=== PATIENT | female | born 1980 | race Caucasian/White ===

== ENCOUNTER 2023-04-03 08:16 | Outpatient (OUT) | payer OTHER, MEDICAID, SELFPAY ==
[2023-04-03 08:35] LABS: Basophils Absolute Auto 0.1 10^3/uL (0.0-0.1); Basophils Percent Auto 1.2 % (0.2-2.0); Eosinophils Absolute Auto 0.2 10^3/uL (0.0-0.7); Hematocrit 38.1 % (36.0-48.0); Hemoglobin 12.7 g/dL (12.0-16.0); Immature Granulocytes Abs Auto 0.01 10^3/uL (0.00-0.03); Immature Granulocytes Pct Auto 0.2 % (0.0-0.5); Lymphocytes Absolute Auto 1.4 10^3/uL (1.2-3.8); Lymphocytes Percent Auto 32.6 % (20.5-60.0); Mean Corpuscular HGB Conc 33.3 g/dL (29.9-35.2); Mean Corpuscular Hemoglobin 31.7 pg (26.7-34.0); Mean Platelet Volume 10.6 fL (9.5-13.5); Monocytes Absolute Auto 0.4 10^3/uL (0.3-0.8); Monocytes Percent Auto 8.7 % (1.7-12.0); Neutrophils Absolute Auto 2.3 10^3/uL (1.4-6.5); Neutrophils Percent Auto 53.3 % (43.0-75.0); Platelet Count 190 10^3/uL (150-450); Red Blood Count 4.01 10^6/uL (4.20-5.40); Red Cell Distribution Width 12.7 % (11.0-15.0); White Blood Count 4.2 10^3/uL (4.0-11.0)
[2023-04-03 08:39] LABS: Bilirubin Urine NEGATIVE (NEGATIVE); Blood Urine NEGATIVE (NEGATIVE); Clarity Urine CLEAR (CLEAR); Color Urine YELLOW (YELLOW); Glucose Urine UA NEGATIVE (NEGATIVE); Ketones Urine NEGATIVE (NEGATIVE); Leukocyte Esterase Urine NEGATIVE (NEGATIVE); Nitrite Urine NEGATIVE (NEGATIVE); Protein Urine NEGATIVE (NEG/TRACE); Urobilinogen Urine 0.2 EU/dL (0.2-1.0)
[2023-04-03 09:20] LABS: WBC Urine NONE SEEN #/HPF (NONE SEEN)
[2023-04-03 09:21] LABS: Bacteria Urine NONE SEEN #/HPF (NONE SEEN); Mucus Urine MODERATE (NONE SEEN); RBC Urine NONE SEEN #/HPF (0-2); Squamous Epithelial Cell Urine MODERATE #/LPF (NONE/RARE)
[2023-04-03 09:43] LABS: Alanine Aminotransferase 16 U/L (14-59); Albumin Globulin Ratio 1.2; Albumin Level 3.8 g/dL (3.4-5.0); Alkaline Phosphatase 48 U/L (46-116); Anion Gap 8.2; Aspartate Amino Transferase 15 U/L (15-37); BUN Creatinine Ratio 11.9; Bilirubin Total 0.5 mg/dL (0.2-1.0); Calcium 8.7 mg/dL (8.5-10.1); Carbon Dioxide 32.7 mmol/L (21.0-32.0); Chloride 104 mmol/L (98-107); Chol HDL Ratio 2.7; Cholesterol 189 mg/dL (<=200); Estimated GFR (African America >60 (>=60); Estimated GFR (Non-African Ame >60 (>=60); Globulin 3.2 g/dL; Glucose 98 mg/dL (74-106); HDL Cholesterol 69 mg/dL (40-60); Potassium 3.9 mmol/L (3.5-5.1); Sodium 141 mmol/L (136-145); Thyroid Stimulating Hormone 5.092 uIU/mL (0.358-3.740); Triglycerides 84 mg/dL (<=150); VLDL CHOLESTEROL 16.8 mg/dL
== END 2023-04-03 08:17 | disposition home or self-care (01) ==
LOC: LAB 08:16
PROVIDERS: PCP Family Medicine; Visit Provider Nurse Practitioner
DX: Z00.00 Encounter for general adult medical examination without abnormal findings (principal)
CPT/HCPCS: 36415; 80053; 80061; 81001; 84443; 85025

== ENCOUNTER 2023-06-27 08:22 | Outpatient (OUT) | payer OTHER, MEDICAID, SELFPAY ==
[2023-06-27 09:36] LABS: Free T4 0.86 ng/dL (0.76-1.46)
[2023-06-27 09:53] LABS: Thyroid Stimulating Hormone 4.467 uIU/mL (0.358-3.740)
[2023-06-28 17:07] LABS: Thyroglobulin Antibody <1.0 IU/mL (0.0-0.9); Thyroid Peroxidase (TPO) Ab <9 IU/mL (0-34)
== END 2023-06-27 08:23 | disposition home or self-care (01) ==
LOC: LAB 08:23
PROVIDERS: PCP Family Medicine; Visit Provider Nurse Practitioner
DX: R79.89 Other specified abnormal findings of blood chemistry (principal)
CPT/HCPCS: 36415; 84439; 84443; 84481; 86376; 86800

== ENCOUNTER 2024-10-30 10:53 | Emergency (ER) | payer OTHER, MEDICAID, SELFPAY ==
[2024-10-30] VITALS (7 sets, daily range): BP systolic 143; BP diastolic 95; PULSE 78–92; TEMP 36.8; O2SAT 98–100; BMI 32.6
--- OUTSIDE RECORDS SUMMARY | 2024-10-30 11:17 | XMS_ITS | CCD ---
Author Organization [facility] Care Team Providers Care Foil Spooler Name Role Phone DR NIK HUI Attending Unavailable EZ, DR NIK Pruitt Consulting Unavailable EZ, DR NIK Pruitt Primary Care Unavailable EZ, DR NIK Pruitt Admitting Unavailable Ez CATHERINE, Nik Primary Care Provider REGINA SWANSON Attending Unavailable MAGNOLIA DOBBINS Attending Unavailable ABUSAMIEH, MATTHEW A Referring Unavailabl e MYLES AGARWAL Attending Unavailable ABUSAMIEH, MOHAMMED A Referring Unavailabl e MAGNOLIA DOBBINS Attending Unavailable ABUSAMIEH, MOHAMMED A Referring Unavailabl e ZAID PAYNE Attending Unavailable ANY, MYLES Attending Unavailable ABUSAMIEH, MOHAMMED A Referring Unavailabl e MAGNOLIA DOBBINS Attending Unavailable ABUSAMIEH, MOHAMMED A Referring Unavailabl e TATTERSALL, MYLES Attending Unavailable ABUSAMIEH, MOHAMMED A Referring Unavailabl e TATTERSSO, MYLES Attending Unavailable ABUSAMIEH, MOHAMMED A Referring Unavailthomas e MARIANNA EVANS Attending Unavailable TATTERSSO, MYLES Attending Unavailable ABUSAMIEH, MOHAMMED A Referring Unavailabl e ZAID PAYNE Referring Unavailable MAGNOLIA DOBBINS Attending Unavailable TATTERSSO, MYLES Attending Unavailable ABUSAMIEH, MOHAMMED A Referring Unavailabl e REGINA SWANSON Attending Unavailable MARIANNA EVANS Attending Unavailable MARIANNA EVANS Attending Unavailable Allergies Allergy Classification Reported Allergen(s) Allergy Type Date of Onset Reaction(s) Facility (11 sources) Cephalexin Drug Allergy 07-19-2023 [facility] Medications Current Medications Medication Drug Class(es) Dates Sig (Normalized) Sig (Original) 200 actuat albuterol 0.09 mg/actuat dry powder inhaler (11 sources) beta2-Adrenergic Agonist albuterol (ProAir RespiClick) 90 mcg/act breath-activated inhaler every 4 (four) hours. Active azelastine hydrochloride 0.137 mg/actuat metered dose nasal spray (3 sources) Histamine-1 Receptor Antagonist Start: 02-10-2023 End: 02-10-2024 take 1 spray(s) nasal route in the morning azelastine (Astelin) 0.1 % nasal spray Indications: Acute non-recurrent maxillary sinusitis Administer 1 spray into each nostril in the morning and 1 spray before bedtime. Use in each nostril as directed. 30 mL 0 02/10/2023 02/10/2024 Active azithromycin 250 mg oral tablet (3 sources) Macrolide Antimicrobial Start: 09-23-2024 azithromycin (Zithromax) 250 MG tablet Indications: Non-recurrent acute suppurative otitis media of right ear without spontaneous rupture of tympanic membrane Day #1: 2 pills, Day #2-#5: 1 pill daily 6 tablet 09/23/2024 Active Start: 09-23-2024 azithromycin ( Zithromax) 250 MG tablet Indications: Non- recurrent acute suppurative otitis media of right ear without spontaneous rupture of tympanic membrane Day #1: 2 pills, Day #2-#5: 1 pill daily 6 tablet 09/23/2024 Active buprenorphine 8 mg / naloxone 2 mg sublingual film (11 sources) Partial Opioid Agonist, Opioid Antagonist Buprenorphine HCl-Naloxone HCl (Suboxone) 8-[address] 1 film by sublingual route every day allow to dissolve slowly in mouth without chewing or swallowing Sublingual Active cetirizine hydrochloride 10 mg oral tablet (8 sources) Histamine-1 Receptor Antagonist Start: 024 take 1 tablet by mouth once daily cetirizine (ZyrTEC) 10 MG tablet Indications: Environmental and seasonal allergies Take 1 tablet (10 mg) by mouth Daily 90 tablet 1 01/03/2024 Active clobetasol propionate 0.5 mg/ml topical solution (10 sources) Corticosteroid Start: 024 End: 025 clobetasol (Temovate) 0.05 % external solution Indications: Psoriasis vulgaris (CMS/HCC) Apply to scalp Apply to affected areas, up to twice a day when flared, do not use one the face, groin, or underarms, 30 day supply 50 mL 11 08/18/2024 Active fluticasone propionate 0.05 mg/actuat metered dose nasal spray (8 sources) Corticosteroid Start: 024 take 1-2 spray(s) nasal route once daily fluticasone (Flonase) 50 MCG/ACT nasal spray Indications: Environmental and seasonal allergies Administer 1-2 sprays into each nostril Daily Shake gently. Before first use, prime pump. After use, clean tip and replace cap. 48 g 1 01/03/2024 Active meclizine hydrochloride 25 mg oral tablet (12 sources) Antiemetic Start: 025 End: take 1 tablet by mouth every eight hours for dizziness meclizine (Antivert) 25 MG tablet Indications: Vertigo Take 1 tablet (25 mg) by mouth every 8 (eight) hours if needed for dizziness for up to 7 days 21 tablet 09/23/2024 09/30/2024 Active End: 09-23-2024 meclizine (Antivert) 50 MG t ablet Antivert 09/23/2024 Discontinued (Therapy completed) meloxicam 15 mg oral tablet (7 sources) Nonsteroidal Anti-inflammatory Drug Start: 08-19-2023 End: 11-17-2023 take 1 tablet by mouth in the morning meloxicam (Mobic) 15 MG tablet Indications: Effusion, right knee , Effusion of lower leg joint Take 1 tablet (15 mg) by mouth in the morning. 90 tablet 0 08/19/2023 11/17/2023 Active triamcinolone acetonide 0.25 mg/ml topical cream (16 sources) Corticosteroid Start: 02-04-2024 triamcinolone (Kenalog) 0.025 % cream Indications: Psoriasis vulgaris (CMS/HCC) Apply to affected areas, up to twice a day when flared, 30 day supply 30 g 6 02/04/2024 Active Start: 12-03-2023 triamcinolone (Kenalog) 0.025 % ointment Indications: Psoriasis vulgaris (CMS/HCC) Apply to affected areas, up to twice a day when flared, 30 day supply 454 g 11 12/03/2023 Active valACYclovir 1000 mg oral tablet (11 sources) Herpesvirus Nucleoside Analog DNA Polymerase Inhibitor, Herpes Simplex Virus Nucleoside Analog DNA Polymerase Inhibitor, Herpes Zoster Virus Nucleoside Analog DNA Polymerase Inhibitor Start: 02-22-2023 valACYclovir (Valtr ex) 1 g tablet Take 1,000 mg by mouth in the morning and 1,000 mg before bedtime. 02/22/2023 Active Problems Active Problems Problem Classification Problem Date Documented Date Episodic/Chronic Conditions associated with dizziness or vertigo (5 sources) Vertigo; Translations: [Dizziness and giddiness] Onset: 09-23-2024 09-23-2024 Episodic Diabetes mellitus without complication (2 sources) Increased glucose level; Translations: [Other abnormal glucose] Onset: 10-14-2024 10-14-2024 Episodic Genitourinary symptoms and ill-defined conditions (11 sources) Genuine stress incontinence; Translations: [Stress incontinence (female) (male)] Onset: 07-19-2023 07-19-2023 Chronic Genitourinary symptoms and ill-defined conditions (2 sources) Microscopic hematuria; Translations: [Other microscopic hematuria] Onset: 10-14-2024 10-14-2024 Episodic Hepatitis (11 sources) Chronic viral hepatitis C; Translations: [Chronic hepatitis C] Onset: 01-21-2021 Resolved: 09-23-2024 03-10-2024 Chronic Menstrual disorders (20 sources) Dysmenorrhea; Translations: [Dysmenorrhea, unspecified] Onset: 07-19-2023 07-19-2023 Chronic Other ear and sense organ disorders (5 sources) Impacted cerumen in right ear; Translations: [Impacted cerumen, right ear] Onset: 09-23-2024 09-23-2024 Episodic Other infections; including parasitic (5 sources) History of hepatitis C; Translations: [Personal history of other infectious and parasitic diseases] Onset: 09-23-2024 09-23-2024 Episodic Other inflammatory condition of skin (12 sources) Psoriasis; Translations: [Psoriasis, unspecified] Onset: 09-24-2023 09-24-2023 Chronic Other inflammatory condition of skin (2 sources) Psoriasis vulgaris; Translations: [Psoriasis vulgaris] 08-18-2024 Chronic Other nutritional; endocrine; and metabolic disorders (15 sources) Body mass index 30+ - obesity; Translations: [Obesity, unspecified] Onset: 07-23-2023 07-23-2023 Chronic Other screening for suspected conditions (not mental disorders or infectious disease) (20 sources) Raised TSH level; Translations: [Other specified abnormal findings of blood chemistry] Onset: 07-23-2023 07-23-2023 Episodic Other upper respiratory disease (8 sources) Allergic disposition; Translations: [Other allergic rhinitis] Onset: 01-03-2024 01-03-2024 Chronic Otitis media and related conditions (5 sources) Acute suppurative otitis media without spontaneous rupture of ear drum; Translations: [Acute suppurative otitis media without spontaneous rupture of ear drum, right ear] Onset: 09-23-2024 09-23-2024 Episodic Prolapse of female genital organs (11 sources) Midline cystocele; Translations: [Cystocele, midline] Onset: 07-19-2023 07-19-2023 Chronic Residual codes; unclassified (6 sources) Patient participation status; Translations: [Other specified health status] Onset: 09-23-2024 09-23-2024 Episodic Substance-related disorders (20 sources) Smoker; Translations: [Nicotine dependence, unspecified, uncomplicated] Onset: 07-19-2023 07-19-2023 Chronic Past or Other Problems Problem Classification Problem Date Documented Date Episodic/Chronic Hepatitis (11 sources) Acute hepatitis C; Translations: [Acute hepatitis C without hepatic coma] Onset: 08-13-2008 Resolved: 09-23-2024 07-19-2023 Episodic Immunizations and screening for infectious disease (11 sources) Anti-nuclear factor positive; Translations: [Other specified abnormal immunological findings in serum] Onset: 07-23-2023 07-23-2023 Episodic Other non-traumatic joint disorders (13 sources) Joint pain; Translations: [Pain in unspecified joint] Onset: 08-19-2023 08-19-2023 Episodic Other upper respiratory infections (8 sources) Acute frontal sinusitis; Translations: [Acute frontal sinusitis, unspecified] Onset: 01-03-2024 Resolved: 09-23-2024 01-03-2024 Episodic Results Test Name Value Interpretation Reference Range Facility BI MAMMOGRAM SCREENING TOMOS YNTHESIS BILATERALon 11-05-2023 BI MAMMOGRAM SCREENING TOMOSYNTHESIS BILATERAL This is a summary report. The complete report is available in the patient's medical record. If you cannot access the medical record, please contact the sending organization for a detailed fax or copy. BI MAMMOGRAM SCREENING TOMOSYNTHESIS BILATERAL : 12/11/2023 4:06 PM CLINICAL HISTORY: screening. COMPARISONS: July 28, 2020; November 04, 2021; November 10, 2022. TECHNIQUE: Routine full field 3D breast tomosynthesis was performed bilaterally. CAD analysis was performed and used in the interpretation. FINDINGS: Both breasts remain heterogeneously dense with stable mild asymmetry. There are no dominant masses, suspicious microcalcifications, or areas of architectural distortion identified on today's examination. There is no significant change when compared to the prior examinations identified, given differences in technique and positioning. IMPRESSION: BI-RADS 1- NEGATIVE. ROUTINE FOLLOW-UP MAMMOGRAPHY IS SUGGESTED IN ONE YEAR. DENSITY: Heterogeneously dense. Board Certified Radiologists. Accredited by the ACR and FDA. MAMMOGRAPHY IS VERY IMPORTANT TO YOUR HEALTH. THE CITIZEN OF [place] [employer] GUIDELINES RECOMMEND THAT WOMEN 40 YEARS OF AGE AND OLDER SHOULD HAVE A MAMMOGRAM EVERY YEAR. A REMINDER LETTER WILL BE SENT AT THE APPROPRIATE TIME. ELECTRONICALLY SIGNED BY: DO Vanesa Mosquera Not Available Comment on above: Order Comment: Spot compression and us prn Coding Summary.on 09-09-2020 Coding Summary. CODING DATE: 09/09/[address] [facility] STATUS: Home (Routine MD) PAYOR: Commercial Insurance ADMIT DX: REASON FOR VISIT DX: Z01.89 Encounter for other specified special examinations FINAL DX: PRINCIPAL: Z01.89 Encounter for other specified special examinations SECONDARY: PYMT PROC APC STAT DESCRIPTION DOCTOR NAME DATE NOTE: The code number assigned matches the documented diagnosis and / or procedure in the patient's chart. However, the narrative phrase printed from the coding software may appear abbreviated, or result in slightly different terminology. Coded By: Pau German Date Saved: 09/09/2020 07:57 am Normal [facility] Lab Reportson 06-08-2020 Lab Reports [id number] #1.00CD:127 Normal [facility] Retail - Clinical Noteon Retail - Clinical Note [id number] #1.00CD:127 [facility] Retail - Clinical Noteon Retail - Clinical Note [id number] #1.00CD:127 [facility] Retail - Clinical Note [id number] #1.00CD:127 [facility] Retail - Clinical Noteon Retail - Clinical Note [id number]# 1.00CD:127 [facility] Retail - Clinical Noteon Retail - Clinical Note [id number] #1.00CD:127 [facility] Retail - Clinical Noteon Retail - Clinical Note [id number] #1.00CD:127 [facility] Retail - Clinical Note [id number] #1.00CD:127 [facility] Ambulatory Clinical Summaryo n 03-25-2020 Ambulatory Clinical Summary {[id number]}CD:[id number] [facility] Gastroenterology Office/Clin ic Noteon 03-25-2020 Gastroenterology Office/Clinic Note Chief Complaint 4 wk f/u HPI Staff This is a 39 year old female who presents today for a 4 week follow up. History of Present Illness 39 years old white female is here for follow-up, she was recently seen for chronic history of hepatitis C, she is known to have hepatitis C since 2008, acquired through IV drugs, she quit using IV drugs in 2013, she has chronic hepatitis C, genotype 1a, viral load 230,000, she has positive titers reflecting immunity for hepatitis A and hepatitis B, negative for HIV, normal liver ultrasound, FibroScan showed F1/F0 fibrosis with no steatosis, denies any abdominal pain, no nausea or vomiting, no fever chills Review of Systems PHQ Score Initial Depression Screen Score: 0 Constitutional: no fever, no chills, no sweats, no weakness Skin: no Jaundice, no rash, no lesions, no petechiae ENMT: no ear pain, no sore throat, no congestion, no hoarseness Respiratory: no shortness of breath, no cough, no orthopnea, no wheezing Cardiovascular: no chest pain, no palpitations, no edema Gastrointestinal: no nausea, no vomiting, no diarrhea, no Constipation noGI bleeding no abd pain no dysphagia no bloating no heartburn Genitourinary: no dysuria, no hematuria, no discharge, no pain Musculoskeletal: no back pain, no trauma Neurologic: no numbness, no sleeping problems Additional ROS info: Except as noted in the above Review of Systems and in the History of Present Illness all other systems have been reviewed and are negative or noncontributory. Physical Exam Vitals & Measurements T: 36.3 ?C (Temporal Artery) HR: 74(Peripheral) RR: 16 SpO2: 79% HT: 162.56 cm HT: 162.6 cm WT: 81.8 kg WT: 81.8 kg BMI: 30.95 Constitutional: Appearance: well developed Skin: Inspection: no rashes, ulcers, icterus , or telangiectasias. Eyes: Conjunctivae/lids: normal conjunctivae and lids. ENMT: Hearing: within normal limits. Lips/Teeth/Gums: normal oral mucosa Neck: Neck: normal motion, central trachea. Respiratory: Percussion: thorax normoresonant. Auscultation: normal breath sounds; no rubs, wheezes, rale or ronchi. Cardiovascular: Auscultation: normal rhythm, S1 and S2; no rubs, murmurs or gallop. Peripheral: no edema Gastrointestinal/Abd omen: Abdomen: normal consistency and bowel sounds; no tenderness or masses. Liver/Spleen: normal size and consistency, not palpable. Rectal: deferred Musculoskeletal: Gait/station: normal gait Assessment/Plan 1. Chronic hepatitis C (B18.2: Chronic viral hepatitis C) GT1a, treatment naive, Viral load 230,000, negative fr HIC, immunes against Hep A&B, F0/F1 fibrosis on FibroScan, will start Epclusa, not , will start Epclusa and repeat viral load at week 4 and 12 Follow-up With When Contact Information Magnus MALDONADO MD In 2 months [place] [id number] [address] [place] [address]- Additional Instructions: Patient Education Hepatitis C Problem List/Past Medical History Ongoing Smoker Historical No qualifying data Medications Antivert 12.5 mg Tab, Oral, TID Suboxone 8 mg-2 mg sublingual film, SubLingual, Daily Allergies No Known Allergies Social History Tobacco 5-9 cigarettes (between 1/4 to 1/2 pack)/day in last 30 days, Smoker, current status unknown Tobacco Use:. Yes, 03/25/2020 Family History Family history is negative Normal [facility] Comment on above: Result Comment: Elec tronically Signed By: JOEL CATHERINE, Magnus\.br\Date and Time Signed: 03/25/20 08:19 EDT Patient Educationon 03-25-20 20 Patient Education Family Medicine Hepatitis C Hepatitis C is a viral infection of the liver. Infection may go undetected for months or years because symptoms may be absent or very mild. Chronic liver disease is the main danger of hepatitis C. This may lead to scarring of the liver (cirrhosis ), liver failure, and liver cancer. CAUSES Hepatitis C is caused by the hepatitis C virus (HCV). Formerly, hepatitis C infections were most commonly transmitted through blood transfusions. In the early , routine testing of donated blood for hepatitis C and exclusion of blood that tests positive for HCV began. Now, HCV is most commonly transmitted from person to person through injection drug use, sharing needles, or sex with an infected person. A caregiver may also get the infection from exposure to the blood of an infected patient by way of a cut or needle stick. SYMPTOMS Acute Phase Many cases of acute HCV infection are mild and cause few problems.?Some people may not even realize they are sick.?Symptoms in others may last a few weeks to several months and include: ? Feeling very tired. ? Loss of appetite. ? Nausea. ? Vomiting. ? Abdominal pain. ? Dark yellow urine. ? Yellow skin and eyes (jaundice ). ? Itching of the skin. Chronic Phase ? Between 50% to 85% of people who get HCV infection become chronic carriers. They often have no symptoms, but the virus stays in their body.?They may spread the virus to others and can get long-term liver disease. ? Many people with chronic HCV infection remain healthy for many years. However, up to 1 in 5 chronically infected people may develop severe liver diseases including scarring of the liver (cirrhosis ), liver failure, or liver cancer. DIAGNOSIS Diagnosis of hepatitis C infection is made by testing blood for the presence of hepatitis C viral particles called RNA. Other tests may also be done to measure the status of current liver function, exclude other liver problems, or assess liver damage. TREATMENT Treatment with many antiviral drugs is available and recommended for some patients with chronic HCV infection. Drug treatment is generally considered appropriate for patients who: ? Are 18 years of age or older. ? Have a positive test for HCV particles in the blood. ? Have a liver tissue sample (biopsy ) that shows chronic hepatitis and significant scarring (fibrosis ). ? Do not have signs of liver failure. ? Have acceptable blood test results that confirm the wellness of other body organs. ? Are willing to be treated and conform to treatment requirements. ? Have no other circumstances that would prevent treatment from being recommended (contraindications ). All people who are offered and choose to receive drug treatment must understand that careful medical follow up for many months and even years is crucial in order to make successful care possible. The goal of drug treatment is to eliminate any evidence of HCV in the blood on a long-term basis. This is called a sustained virologic response or SVR. Achieving a SVR is associated with a decrease in the chance of life-threatening liver problems, need for a liver transplant, liver cancer rates, and liver-related complications. Successful treatment currently requires taking treatment drugs for at least 24 weeks and up to 72 weeks. An injected drug (interferon ) given weekly and an oral antiviral medicine taken daily are usually prescribed. Side effects from these drugs are common and some may be very serious. Your response to treatment must be carefully monitored by both you and your caregiver throughout the entire treatment period. PREVENTION There is no vaccine for hepatitis C. The only way to prevent the disease is to reduce the risk of exposure to the virus. ? Avoid sharing drug needles or personal items like toothbrushes, razors, and nail clippers with an infected person. ? Healthcare workers need to avoid injuries and wear appropriate protective equipment such as gloves, gowns, and face masks when performing invasive medical or nursing procedures. HOME CARE INSTRUCTIONS To avoid making your liver disease worse: ? Strictly avoid drinking alcohol. ? Carefully review all new prescriptions of medicines with your caregiver. Ask your caregiver which drugs you should avoid. The following drugs are toxic to the liver, and your caregiver may tell you to avoid them: ? Isoniazid. ? Methyldopa. ? Acetaminophen. ? Anabolic steroids (muscle-building drugs). ? Erythromycin. ? Oral contraceptives ( control pills). ? Check with your caregiver to make sure medicine you are currently taking will not be harmful. ? Periodic blood tests may be required. Follow your caregiver's advice about when you should have blood tests. ? Avoid a sexual relationship until advised otherwise by your caregiver. ? Avoid activities that could expose other people to your blood. Examples include sharing a toothbrush, nail clippers, razors, and needles. ? Bed rest is not necessary, but it may make you feel better. Recovery time is not related to the amount of rest you receive. ? This infection is contagious. Follow your caregiver's instructions in order to avoid spread of the infection. SEEK IMMEDIATE MEDICAL CARE IF: ? You have increasing fatigue or weakness. ? You have an oral temperature above 102? F (38.9? C), not controlled by medicine. ? You develop loss of appetite, nausea, or vomiting. ? You develop jaundice. ? You develop easy bruising or bleeding. ? You develop any severe problems as a result of your treatment. MAKE SURE YOU: ? Understand these instructions. ? Will watch your condition. ? Will get help right away if you are not doing well or get worse. Document Released: 07/27/2001 Document Revised: 10/21/2012 Document Reviewed: 11/29/2011 ExitCare? Patient Information ?2014 [employer]. Normal [facility] Consent for Treatmenton Consent for Treatment [id number] #1.00CD:127 Normal [facility] Lab Miscellaneous-LCon 03-20 Test Code [id number] [facility] Comment on above: Performed By: #### 1 [id number] #### [facility] [address] [place] [address] Test Name DRUG SCREEN+ETH [facility] Comment on above: Performed By: #### 1 [id number] #### [facility] [address] [place] [address] Physician Orderon 03-20-2020 Physician Order [id number] #1.00CD:127 Normal [facility] Coding Summary.on 03-19-2020 Coding Summary. CODING DATE: 03/19/2020 FINAL [facility] STATUS: Home (Routine DC) PAYOR: Commercial Insurance APC DESCRIPTION 5522 Level 2 Imaging without Contrast ADMIT DX: REASON FOR VISIT DX: R76.8 Other specified abnormal immunological findings in serum FINAL DX: PRINCIPAL: R76.8 Other specified abnormal immunological findings in serum SECONDARY: PYMT PROC APC STAT DESCRIPTION DOCTOR NAME DATE NOTE: The code number assigned matches the documented diagnosis and / or procedure in the patient's chart. However, the narrative phrase printed from the coding software may appear abbreviated, or result in slightly different terminology. Coded By: Yamile Michel Date Saved: 03/19/2020 11:49 am Normal [facility] Physician Orderon 03-19-2020 Physician Order [id number] 9#1.00CD:127 Normal [facility] Postoperative Documentson Postoperative Documents [id number] 9#1.00CD:127 Normal [facility] Hep Bs Abon 03-18-2020 HBV surface Ab Ql (S) Reactive Fis [facility] Comment on above: Result Comment: Non Reactive: Inconsistent with immunity, less than 10 mIU/mL Reactive: Consistent with immunity, greater than 9.9 mIU/mL Performed at: [facility] [address] [id number] PhD Curtis Mckenzie Performed By: #### 1 [id number] ####[facility] [address] [place] [address] Hep Bs Agon 03-18-2020 HBV surface Ag IA Ql Negative Negative [facility] Comment on above: Result Comment: Perf ormed at: [facility] [id number] PhD Curtis Mckenzie Performed By: #### 1 [id number] ####[facility] [address] [place] [address] Hepatitis A Virus (HAV) Anti body, Totalon 03-18-2020 HAV Ab IA Ql (S) Positive Abnormal Negative [facility] Comment on above: Result Comment: Perf ormed at: [facility] [address] [id number] PhD Curtis Mckenzie Performed By: #### 1 [id number] ####[facility] [address] [place] [address] US Abdomen, Limitedon 2019 US Abdomen, Limited Exam Date/Time: 03/17/2020 08:49 EDT Reason for Exam: Other specified abnormal immunological findings in serum;Other (please specify) Report IMPRESSION: No focal hepatic lesion. Normal sonographic appearance of the gallbladder. EXAMINATION: US Abdomen, Limited HISTORY: Other specified abnormal immunological findings in serum. Hepatitis C. TECHNIQUE: Sonography of the right upper quadrant was performed. Images were obtained and stored in a permanent archive.\X09\ COMPARISON: None. RESULT: Pancreas: Not well-visualized due to bowel gas. Liver: Echotexture: Coarse Echogenicity: Increased Surface contour: Smooth Lesions: None. Biliary: No intrahepatic biliary duct dilation. CBD: 0.4 cm at the hilum. Gallbladder: Normal caliber -Contents: No cholelithiasis -Wall: Normal -Other: No pericholecystic fluid. Right Kidney: Imaged portions unremarkable. Ascites: None. FINAL REPORT Dictated: 03/18/2020 4:36 pm Tan Rivero MD Signed (Electronic Signature): 03/18/2020 4:36 pm Signed by: Tan Rivero MD Transcribed by: DIEGO Technologist: HW Normal [facility] Consent for Treatmenton Consent for Treatment [id number] #[id number]:[id number] Normal [facility] Lab Miscellaneous-LCon 03-17 Test Code [id number] [facility] Comment on above: Order Comment: Urine Drug and Alcohol x3 @ 1 Month @ 3 Months @ 6 Months CANCELLED/ [facility] CAN NOT FIND THE SPECIMEN. PATIENT TO BE CALLED BACK TO RECOLLECT. 03/19/2020 15:02 Performed By: #### 1 [id number] #### [facility] [address] [place] [address] Test Name Drug/Alc Urine [facility] Comment on above: Order Comment: Urine Drug and Alcohol x3 @ 1 Month @ 3 Months @ 6 Months CANCELLED/ [facility] CAN NOT FIND THE SPECIMEN. PATIENT TO BE CALLED BACK TO RECOLLECT. 03/19/2020 15:02 Performed By: #### 1 [id number] #### [facility] [address] [place] [address] Ambulatory Clinical Summaryo n 02-24-2020 Ambulatory Clinical Summary {[id number] Normal [facility] Vital Signs Date Time Vital Sign Value Performing Clinician Facility 09-23-2024 08:42-0500 Body height 162.6 cm Regina Swanson SPECIAL PROCEDURES TECH Work Phone: [facility] 09-23-2024 08:42-0500 Body mass index (BMI) [Ratio] 33.3 kg/m2 Regina Swanson SPECIAL PROCEDURES TECH Work Phone: [facility] 09-23-2024 08:42-0500 Body temperature 98.49 [degF] Regina Swanson SPECIAL PROCEDURES TECH Work Phone: [facility] 09-23-2024 08:42-0500 Body weight 88 kg Regina Swanosn SPECIAL PROCEDURES TECH Work Phone: [facility] 09-23-2024 08:42-0500 Diastolic blood pressure 90 mm[Hg] Regina Swanson SPECIAL PROCEDURES TECH Work Phone: [facility] 09-23-2024 08:42-0500 Heart rate 89 /min Regina Swanson SPECIAL PROCEDURES TECH Work Phone: [facility] 09-23-2024 08:42-0500 Respiratory rate 19 /min Regina Swanson SPECIAL PROCEDURES TECH Work Phone: [facility] 09-23-2024 08:42-0500 SaO2% (BldA) [Mass fraction] 96 % Regina Swanson SPECIAL PROCEDURES TECH Work Phone: [facility] 09-23-2024 08:42-0500 Systolic blood pressure 130 mm[Hg] Regina Swanson SPECIAL PROCEDURES TECH Work Phone: [facility] 09-24-2023 18:12-0500 Body height 162.6 cm Regina Swanson SPECIAL PROCEDURES TECH Work Phone: [facility] 09-24-2023 18:12-0500 Body mass index (BMI) [Ratio] 32.34 kg/m2 Regina Swanson SPECIAL PROCEDURES TECH Work Phone: [facility] 09-24-2023 18:12-0500 Body temperature 97.11 [degF] Regina Swanson SPECIAL PROCEDURES TECH Work Phone: [facility] 09-24-2023 18:12-0500 Body weight 85.46 kg Regina Swanson SPECIAL PROCEDURES TECH Work Phone: [facility] 09-24-2023 18:12-0500 Diastolic blood pressure 88 mm[Hg] Regina Swanson SPECIAL PROCEDURES TECH Work Phone: [facility] 09-24-2023 18:12-0500 Heart rate 77 /min Regina Swanson SPECIAL PROCEDURES TECH Work Phone: [facility] 09-24-2023 18:12-0500 Respiratory rate 18 /min Regina Swanson SPECIAL PROCEDURES TECH Work Phone: [facility] 09-24-2023 18:12-0500 SaO2% (BldA) [Mass fraction] 99 % Regina Swanson SPECIAL PROCEDURES TECH Work Phone: [facility] 09-24-2023 18:12-0500 Systolic blood pressure 122 mm[Hg] Regina Swanson SPECIAL PROCEDURES TECH Work Phone: [facility] 03-22-2020 15:08-0400 Body mass index (BMI) [Ratio] COMMENT [facility] Comment on above: Result Comment: Test Ordered: [id number] 7+Alc-Unbund Amphetamines, Urine Negative ng/mL UI Reference Range: Lftcpw=2083 Amphetamine test includes Amphetamine and Methamphetamine. Barbiturate Negative ng/mL UI Reference Range: Rgltbg=416 Benzodiazepines Negative ng/mL UI Reference Range: Omsthu=185 Cannabinoid Negative ng/mL UI Reference Range: Cutoff=50 Cocaine (Metab.) Negative ng/mL UI Reference Range: Mfqmwg=851 Opiates Negative ng/mL UI Reference Range: Fkbeqb=066 Opiate test includes Codeine and Morphine only. Phencyclidine Negative ng/mL UI Reference Range: Cutoff=25 Ethanol, Urine Negative % UI Reference Range: Cutoff=0.020 Performed at: [facility] [address] [id number] PhD Curtis Mckenzie Performed By: #### 1 [id number] #### [facility] [address] [place] [address] 03-19-2020 17:02-0400 Body mass index (BMI) [Ratio] CANCEL [facility] Comment on above: Order Comment: Urine Drug and Alcohol x3 @ 1 Month @ 3 Months @ 6 Months CANCELLED/ [facility] CAN NOT FIND THE SPECIMEN. PATIENT TO BE CALLED BACK TO RECOLLECT. 03/19/2020 15:02 Performed By: #### 1 [id number] #### [facility] [address] [place] [address] Encounters Encounter Date Encounter Type Care Provider Facility Start: 10-14-2024 End: 10-14-2024 Orders Only Regina Swanson SPECIAL PROCEDURES TECH Work Phone: [facility] Comment on above: TSH elevation (Prima ry Dx); Elevated glucose; Abnormal CBC; Microscopic hematuria Start: 09-23-2024 End: 09-23-2024 Bamboo flowsheet Regina Swanson SPECIAL PROCEDURES TECH Work Phone: [facility] Start: 09-23-2024 End: 09-23-2024 Bamboo flowsheet Regina Swanson SPECIAL PROCEDURES TECH Work Phone: [facility] Start: 09-23-2024 End: 09-23-2024 Office outpatient visit 15 minutes Regina Swanson SPECIAL PROCEDURES TECH Work Phone: [facility] Comment on above: Obesity (BMI 30-39.9 ) (Primary Dx); Chronic viral hepatitis C (CMS/HCC); Opioid abuse, uncomplicated (CMS/HCC); Participant in health and wellness plan; History of hepatitis C; Impacted cerumen of right ear; Vertigo; Non-recurrent acute suppurative otitis media of right ear without spontaneous rupture of tympanic membrane Start: 09-23-2024 End: 09-23-2024 ambulatory REGINA KIKI Not Available Start: 08-22-2024 End: 08-22-2024 Telephone encounter Zaid Payne DO Work Phone: [facility] Start: 08-18-2024 End: 08-18-2024 Bamboo flowsheet Marianna L Cristina PA Work Phone: [facility] Start: 08-18-2024 End: 08-18-2024 Bamboo flowsheet Marianna L Cristina PA Work Phone: [facility] Start: 08-18-2024 End: 08-18-2024 Office outpatient visit 15 minutes Marianna L Cristina PA Work Phone: [facility] Comment on above: Psoriasis vulgaris ( CMS/HCC) (Primary Dx) Start: 08-18-2024 End: 08-18-2024 ambulatory MARIANNA L CRISTINA Not Available Start: 02-04-2024 End: 02-04-2024 ambulatory MARIANNA L CRISTINA Not Available Start: 01-03-2024 End: 01-03-2024 ambulatory REGINA KIKI Not Available Start: 12-18-2023 End: 12-19-2023 ambulatory MYLES AGARWAL Not Available Start: 12-12-2023 End: 12-12-2023 ambulatory MAGNOLIA DOBBINS Not Available Start: 12-11-2023 End: 12-11-2023 ambulatory ZAID PAYNE Not Available Start: 12-04-2023 End: 12-05-2023 ambulatory MYLES TATTERSALL Not Available Start: 12-03-2023 End: 12-03-2023 ambulatory MARIANNA GONZALEZANS Not Available Start: 11-27-2023 End: 11-29-2023 ambulatory MYLES LOPEZTERSALL Not Available Start: 11-20-2023 End: 11-20-2023 ambulatory MYLES TATTERSALL Not Available Start: 11-14-2023 End: 11-14-2023 ambulatory MAGNOLIA DOBBINS Not Available Start: 11-07-2023 End: 11-07-2023 ambulatory MYLES TATTERSALL Not Available Start: 11-05-2023 End: 11-05-2023 ambulatory ZAID PAYNE Not Available Start: 10-31-2023 End: 10-31-2023 ambulatory MAGNOLIA DOBBINS Not Available Start: 10-24-2023 End: 10-24-2023 ambulatory MYLES AGARWAL Not Available Start: 10-09-2023 End: 10-09-2023 ambulatory MAGNOLIA DOBBINS Not Available Start: 09-24-2023 End: 09-24-2023 Office outpatient visit 15 minutes Regina Swanson SPECIAL PROCEDURES TECH Work Phone: [facility] Comment on above: Arthralgia, unspecif ied joint (Primary Dx); Obesity (BMI 30-39.9); Current smoker; Psoriasis ([facility]) Start: 09-24-2023 Bamboo flowsheet Regina Swanson SPECIAL PROCEDURES TECH Work Phone: [facility] Start: 09-24-2023 Bamboo flowsheet Regina Swanson SPECIAL PROCEDURES TECH Work Phone: [facility] Start: 01-21-2021 Encounter for genera l adult medical examination without abnormal findings DR NIK HUI [facility] Start: 01-13-2021 End: 01-14-[address] NIK HUI Facility:[facility] Start: 01-13-2021 End: 01-14-2021 Encounter for general adult medical examination without abnormal findings DR NIK HUI Facility:[facility] Procedures Date Procedure Procedure Detail Performing Clinician Start: 12-11-2023 Mammography Marianna ceja PA Work Phone: Start: 11-05-2023 Microscopic observat ion [Identifier] in Cervix by Cyto stain Marianna CHU Work Phone: Start: 11-10-2022 Mammography Regina luciano SPECIAL PROCEDURES TECH Work Phone: Plan of Treatment Date Care Activity Detail Author Start: 10-26-2027 Screening for malign ant neoplasm of cervix [facility] Start: 11-04-2026 Screening for malign ant neoplasm of cervix Pap Smear [facility] Start: 08-17-2025 End: 08-17-2025 Patient encounter procedure 08/17/2025 1:30 PM EST Office Visit [facility] [address] [place] [address] Marianna Evans PA [address] [place], [place] [phone] [facility] Start: 12-10-2024 Screening for malign ant neoplasm of breast Mammogram [facility] Start: 11-26-2024 End: 11-26-2024 Patient encounter procedure 11/26/2024 2:30 PM EDT Office Visit [facility] [address] [place] [phone] Visci Zaid A, DO [address] [place] [address] [facility] Start: 11-12-2024 End: 11-12-2024 Patient encounter procedure 11/12/2024 3:30 PM EDT Office Visit [facility] [address] [place] [phone] Visci, Zaid A, DO [address] [place] [address] [facility] Start: 10-14-2024 End: 10-14-2025 CBC W Auto Differential panel - Blood CBC and differential Lab Routine Abnormal CBC Expected: 10/14/2024 (Approximate), Expires: 10/14/2025 [facility] Comment on above: Expected: 10/14/2024 (Approximate), Expires: 10/14/2025 Start: 10-14-2024 End: 10-14-2025 Hemoglobin A1c/Hemoglobin.total in Blood Hemoglobin A1c Lab Routine Elevated glucose Expected: 10/14/2024 (Approximate), Expires: 10/14/2025 [facility] Comment on above: Expected: 10/14/2024 (Approximate), Expires: 10/14/2025 Start: 10-14-2024 End: 10-14-2025 Thyroid peroxidase and thyroglobulin antibodies Thyroid peroxidase and thyroglobulin antibodies Lab Routine TSH elevation Expected: 10/14/2024 (Approximate), Expires: 10/14/2025 [facility] Comment on above: Expected: 10/14/2024 (Approximate), Expires: 10/14/2025 Start: 10-14-2024 End: 10-14-2025 Thyrotropin [Units/volume] in Serum or Plasma TSH Lab Routine TSH elevation Expected: 10/14/2024 (Approximate), Expires: 10/14/2025 [facility] Work Phone: Comment on above: Expected: 10/14/2024 (Approximate), Expires: 10/14/2025 Start: 10-14-2024 End: 10-14-2025 Thyroxine (T4) free [Mass/volume] in Serum or Plasma T4, free Lab Routine TSH elevation Expected: 10/14/2024 (Approximate), Expires: 10/14/2025 [facility] Comment on above: Expected: 10/14/2024 (Approximate), Expires: 10/14/2025 Start: 10-14-2024 End: 10-14-2025 Urinalysis with microscopic (reflex culture if indicated) Urinalysis with microscopic (reflex culture if indicated) Lab Routine Microscopic hematuria Expected: 10/14/2024 (Approximate), Expires: 10/14/2025 [facility] Comment on above: Expected: 10/14/2024 (Approximate), Expires: 10/14/2025 Start: 09-23-2024 End: 09-23-2025 CBC W Auto Differential panel - Blood CBC and differential Lab Routine Participant in health and wellness plan Expected: 09/23/2024 (Approximate), Expires: 09/23/2025 [facility] Work Phone: Comment on above: Expected: 09/23/2024 (Approximate), Expires: 09/23/2025 Start: 09-23-2024 End: 09-23-2025 Comprehensive metabolic 2000 panel - Serum or Plasma Comprehensive metabolic panel Lab Routine Participant in health and wellness plan Expected: 09/23/2024 (Approximate), Expires: 09/23/2025 [facility] Comment on above: Expected: 09/23/2024 (Approximate), Expires: 09/23/2025 Start: 09-23-2024 End: 09-23-2025 Lipid 1996 panel - Serum or Plasma Lipid panel Lab Routine Participant in health and wellness plan Expected: 09/23/2024 (Approximate), Expires: 09/23/2025 [facility] Comment on above: Expected: 09/23/2024 (Approximate), Expires: 09/23/2025 Start: 09-23-2024 End: 09-23-2025 Thyrotropin [Units/volume] in Serum or Plasma TSH Lab Routine Participant in health and wellness plan Expected: 09/23/2024 (Approximate), Expires: 09/23/2025 [facility] Comment on above: Expected: 09/23/2024 (Approximate), Expires: 09/23/2025 Start: 09-23-2024 End: 09-23-2025 Thyroxine (T4) free [Mass/volume] in Serum or Plasma T4, free Lab Routine Participant in health and wellness plan Expected: 09/23/2024 (Approximate), Expires: 09/23/2025 [facility] Comment on above: Expected: 09/23/2024 (Approximate), Expires: 09/23/2025 Start: 09-23-2024 End: 09-23-2025 Urinalysis complete panel - Urine Urinalysis with reflex microscopic (clean catch) Lab Routine Participant in health and wellness plan Expected: 09/23/2024 (Approximate), Expires: 09/23/2025 [facility] Comment on above: Expected: 09/23/2024 (Approximate), Expires: 09/23/2025 Start: 08-18-2024 End: 08-18-2024 Patient encounter procedure 08/18/2024 1:50 PM EST Office Visit [facility] [address] [place] [address] Marianna Evans, PA [address] [place] [address] Arrived [facility] Comment on above: Arrived Start: 04-13-2024 Influenza vaccination Influenza Vacc ine (#1) [facility] Start: 01-28-2024 End: 01-28-2024 Patient encounter procedure 01/28/2024 6:20 PM EDT Office Visit [facility] [address] [place] [phone] Regina Swanson, YARIEL [address] [place] [phone] [facility] Start: 11-11-2023 Screening for malign ant neoplasm of breast Mammogram [facility] Start: 10-30-2023 End: 10-30-2023 ambulatory 10/30/2023 6:00 PM EDT Treatment [facility] [address] [facility] [address] [place] [address] Magnolia Dobbins, PT [address] [facility] [address] [place] [address] [facility] Start: 10-24-2023 End: 10-24-2023 ambulatory 10/24/2023 7:00 AM EDT Treatment [facility] [address] [facility] [address] [place] [address] Magnolia Dobbins, PT [address] [facility] [address] [place] [address] [facility] Start: 10-17-2023 End: 10-17-2023 ambulatory 10/17/2023 7:00 AM EST Treatment [facility] [address] [facility] [address] [place] [phone] Magnolia Dobbins, PT [address] [facility] [address] [place] [address] [facility] Start: 10-09-2023 End: 10-09-2023 ambulatory 10/09/2023 4:30 PM EST Evaluation [facility] [address] [facility] [address] [place] [phone] Magnolia Dobbins, PT [address] [facility] [address] [place] [address] [facility] Start: 04-13-2023 Influenza vaccination Influenza Vacc ine (#1) [facility] Start: 2001 Screening for malign ant neoplasm of cervix Pap Smear [facility] Immunizations Immunization Date Immunization Notes Care Provider Fa cili 05-13-2024 influenza virus vacc ine, unspecified formulation Regina Aichholz SPECIAL PROCEDURES TECH Work Phone: [facility] 08-29-2023 Influenza, High-dose Seasonal, Quadrivalent, Preservative Free Regina Aichholz SPECIAL PROCEDURES TECH Work Phone: [facility] 08-29-2023 influenza virus vacc ine, unspecified formulation Marianna CHU Work Phone: [facility] 07-12-2020 influenza, seasonal, injectable, preservative free Regina Aichholz SPECIAL PROCEDURES TECH Work Phone: [facility] 07-12-2020 influenza virus vacc ine, unspecified formulation Reigna Aichholz SPECIAL PROCEDURES TECH Work Phone: [facility] 07-27-2019 Influenza, injectabl e, Madin Lula Canine Kidney, quadrivalent with preservative Regina Aichholz SPECIAL PROCEDURES TECH Work Phone: [facility] 03-24-2018 influenza, injectabl e, quadrivalent, preservative free Regina Aichholz SPECIAL PROCEDURES TECH Work Phone: [facility] 09-11-2017 bacillus calmette-gu bryant vaccine Regina Aichholz SPECIAL PROCEDURES TECH Work Phone: [facility] 09-04-2017 bacillus calmette-gu bryant vaccine Regina Aichholz SPECIAL PROCEDURES TECH Work Phone: [facility] 06-17-2013 influenza, seasonal, injectable Regina Aichholz SPECIAL PROCEDURES TECH Work Phone: [facility] 08-24-2010 hepatitis A and hepa titis B vaccine Regina Aichholz SPECIAL PROCEDURES TECH Work Phone: [facility] 10-18-1999 hepatitis B vaccine, pediatric or pediatric/adolescent dosage Regina Aichholz SPECIAL PROCEDURES TECH Work Phone: [facility] 05-19-1999 hepatitis B vaccine, pediatric or pediatric/adolescent dosage Regina Aichholz SPECIAL PROCEDURES TECH Work Phone: [facility] 04-19-1999 hepatitis B vaccine, pediatric or pediatric/adolescent dosage Regina Aichholz SPECIAL PROCEDURES TECH Work Phone: [facility] 04-19-1999 TD(adult) unspecifie d formulation Regina Aichholz SPECIAL PROCEDURES TECH Work Phone: [facility] 11-17-1992 measles, mumps and rubella virus vaccine Regina Aichholz SPECIAL PROCEDURES TECH Work Phone: [facility] 12-16-1985 diphtheria, tetanus toxoids and pertussis vaccine Regina Aichholz SPECIAL PROCEDURES TECH Work Phone: [facility] 12-16-1985 trivalent poliovirus vaccine, live, oral Regina Aichholz SPECIAL PROCEDURES TECH Work Phone: [facility] 02-24-1982 diphtheria, tetanus toxoids and pertussis vaccine Regina Aichholz SPECIAL PROCEDURES TECH Work Phone: [facility] 02-24-1982 trivalent poliovirus vaccine, live, oral Regina Aichholz SPECIAL PROCEDURES TECH Work Phone: [facility] 12-02-1981 measles, mumps and rubella virus vaccine Regina Aichholz SPECIAL PROCEDURES TECH Work Phone: [facility] 02-22-1981 diphtheria, tetanus toxoids and pertussis vaccine Regina Aichholz SPECIAL PROCEDURES TECH Work Phone: [facility] 02-22-1981 trivalent poliovirus vaccine, live, oral Regina Aichholz SPECIAL PROCEDURES TECH Work Phone: [facility] 1980 diphtheria, tetanus toxoids and pertussis vaccine Regina Aichholz SPECIAL PROCEDURES TECH Work Phone: [facility] 1980 trivalent poliovirus vaccine, live, oral Regina Aichholz SPECIAL PROCEDURES TECH Work Phone: [facility] 1980 diphtheria, tetanus toxoids and pertussis vaccine Regina Aichholz SPECIAL PROCEDURES TECH Work Phone: [facility] 1980 trivalent poliovirus vaccine, live, oral Regina Aichholz SPECIAL PROCEDURES TECH Work Phone: [facility] Payers Date Payer Category Payer Medicaid [id number] 2022 Medicaid [id number] 2020 Private Health Insurance [id number] 2020 Private Health Insurance [id number] 1980 Unknown [id number] 2.16.84 0.1.708946.3.579.2.593 1980 Unknown [id number] 2.16.84 0.1.539446.3.579.2.9 1980 Unknown [id number] 2.16.84 0.1.937255.3.579.2.9 1980 Unknown [id number] 2.16.84 0.1.326421.3.579.2.9 1980 Unknown [id number] 2.16.84 0.1.639084.3.579.2.9 1980 Unknown [id number] 2.16.84 0.1.924428.3.579.2.9 1980 Unknown [id number] 2.16.84 0.1.127720.3.579.2.1259 1980 Unknown [id number] 2.16.84 0.1.880685.3.579.2.9 1980 Unknown [id number] 2.16.84 0.1.741157.3.579.2.9 1980 Unknown [id number] 2.16.84 0.1.553513.3.579.2.1258 1980 Unknown [id number] 2.16.84 0.1.423734.3.579.2.1258 1980 Unknown [id number] 2.16.84 0.1.354982.3.579.2.1258 1980 Unknown [id number] 2.16.84 0.1.558827.3.579.2.9 1980 Unknown [id number] 2.16.84 0.1.428169.3.579.2.1258 1980 Unknown [id number] 2.16.84 0.1.048342.3.579.2.9 1980 Unknown [id number] 2.16.84 0.1.080726.3.579.2.9 1980 Unknown [id number] 2.16.84 0.1.966547.3.579.2.9 1980 Unknown [id number] 2.16.84 0.1.183936.3.579.2.9 1959 Unknown [id number] 1959 Unknown [id number] Social History Date Type Detail Facility Start: 07-22-2023 End: 11-05-2023 Tobacco smoking status [facility] Ex-smoker [facility] Start: 08-26-1993 End: 03-18-2021 History of tobacco use Current smoker [facility] Start: 08-26-1993 End: 03-18-2021 History of tobacco use Cigarette Smoker [facility] Start: 07-22-2023 End: 11-05-2023 Tobacco use and exposure User of smokeless tobacco [facility] Start: 07-23-2023 End: 09-23-2024 Alcohol intake Ex-drinker (finding) [facility] Start: 07-16-2023 End: 09-19-2024 [facility] Start: 07-16-2023 End: 09-19-2024 Humiliation, Afraid, Rape, and Kick questionnaire [HARK] [facility] Within the last year , have you been afraid of your partner or ex-partner? No [facility] Attends Club or Organization Meetings Not on file [facility] Are you now , , , , never or living with a partner? [facility] How often to you hav e a drink containing alcohol? Never [facility] Do you feel stress - tense, restless, nervous, or anxious, or unable to sleep at night because your mind is troubled all the time - these days [OSQ] Only a little [facility] (I/We) worried wheth er (my/our) food would run out before (I/we) got money to buy more. Never true [facility] Start: 07-22-2023 Tobacco Comment Last smoked: 1 -5 yearsvape [facility] Start: 07-22-2023 Alcohol Comment caffeine 2-3 cups pe r day [facility] Start: 1980 Sex Assigned At Female [facility] Start: 02-10-2023 Gender identity Identifies as female gender (finding) [facility] Start: 02-10-2023 Sexual orientation Heterosexual (fin ding) [facility] Start: 11-05-2023 Tobacco Comment I still vape u sing nicotine [facility] Do you feel stress - tense, restless, nervous, or anxious, or unable to sleep at night because your mind is troubled all the time - these days [OSQ] Not at all [facility] Clinical Notes 09-24-2023 to 09-23-2024 Regina Swanson, YARIEL - 09/23/2024 9:18 AM ESTMeenakshisa Kiki, SPECIAL PROCEDURES TECH - 09/23/2024 9:16 AM ESTLisa Kiki, SPECIAL PROCEDURES TECH - 09/23/2024 9:15 AM ESTLisa Kiki, SPECIAL PROCEDURES TECH - 09/23/2024 9:03 AM ESTPatient Instructions Note Date & Type Note Facility 09-23-2024 History of Presen t illness Narrative Associated Problem(s): Non-recurrent acute suppurative otitis media of right ear without spontaneous rupture of tympanic membrane Finish atb, if not better fu in office Associated Problem(s): Vertigo Meclizine prn Associated Problem(s): Impacted cerumen of right ear Irrigation: w water pick, 2 large earl chunks cerumen removed Pt tolerated well Does have hx of vertigo, has asked for refill of meclizine in case Associated Problem(s): History of hepatitis C Treated and cured Associated Problem(s): Chronic viral hepatitis C (CMS/HCC) (Resolved 09/23/2024) Treated and cured Pt is thinking that when she showers water is getting trapped into both ears, more so her right ear. Pt states that her right ear has been sore for about 1-2 weeks now. Pt did try some ear drops to help loosen any thing up however it did not help and instead caused it to be more clogged. Images from the original note were not included. Jovanna Brownlee is a 44 y.o. female presents with chief complaint of No chief complaint on file. HPI: Right ear: muffled sound, decreased hearing, feels like water is in there. Last week more pain. Does have intemittent vertigo take meclizine prn No allergy or sinus issues. SUBJECTIVE: MEDICATIONS: Current Outpatient Medications Medication Instructions albuterol (ProAir RespiClick) 90 mcg/act breath-activated inhaler Every 4 hours azithromycin (Zithromax) 250 MG tablet Day #1: 2 pills, Day #2-#5: 1 pill daily Buprenorphine HCl-Naloxone HCl (Suboxone) 8-[address] 1 film by sublingual route every day allow to dissolve slowly in mouth without chewing or swallowing Sublingual cetirizine (ZYRTEC) 10 mg, Oral, Daily clobetasol (Temovate) 0.05 % external solution Apply to scalp Apply to affected areas, up to twice a day when flared, do not use one the face, groin, or underarms, 30 day supply fluticasone (Flonase) 50 MCG/ACT nasal spray 1-2 sprays, Each Nostril, Daily, Shake gently. Before first use, prime pump. After use, clean tip and replace cap. meclizine (ANTIVERT) 25 mg, Oral, Every 8 hours PRN meloxicam (MOBIC) 15 mg, Daily triamcinolone (Kenalog) 0.025 % cream Apply to affected areas, up to twice a day when flared, 30 day supply triamcinolone (Kenalog) 0.025 % ointment Apply to affected areas, up to twice a day when flared, 30 day supply valACYclovir (VALTREX) 1,000 mg, 2 times daily ALLERGIES: Allergies Allergen Reactions Cephalexin Hives REVIEW OF SYMPTOMS: Review of Systems Constitutional: Negative for appetite change, chills and fever. HENT: Positive for ear pain. Negative for congestion and sore throat. Eyes: Negative for pain, discharge, redness and visual disturbance. Respiratory: Negative for cough, shortness of breath and wheezing. Cardiovascular: Negative for chest pain, palpitations and leg swelling. Gastrointestinal: Negative for abdominal pain, blood in stool, constipation, diarrhea, nausea and vomiting. Genitourinary: Negative for difficulty urinating, dysuria and frequency. Musculoskeletal: Negative for arthralgias, back pain, joint swelling and myalgias. Skin: Negative for rash and wound. Neurological: Negative for dizziness, tremors, seizures, syncope and headaches. Psychiatric/Behavioral: Negative for behavioral problems, self-injury and suicidal ideas. The patient is not nervous/anxious. Hematological: Does not bruise/bleed easily. Endocrine: Negative for polydipsia, polyphagia and polyuria. Allergic/Immunologic: Negative for environmental allergies and food allergies. PAST MEDICAL HISTORY Past Medical History: Diagnosis Date HAYDEN positive 07/23/2023 Arthralgia 08/19/2023 Atypical squamous cells of undetermined significance (ASC-US) on cervical Pap smear Cervical dysplasia Chronic hepatitis C with hepatic coma (CMS/HCC) Chronic viral hepatitis C (CMS/HCC) 03/10/2024 COPD (chronic obstructive pulmonary disease) (CMS/HCC) Elevated antinuclear antibody (HAYDEN) level Elevated antinuclear antibody (HAYDEN) level 07/23/2023 Elevated TSH Hepatitis C (CMS/HCC) 2009 treated Herpes Obesity (BMI 30-39.9) 07/23/2023 Opioid abuse ([facility]) Pain of right calf Swelling of right knee joint Tobacco user TSH elevation 07/23/2023 Vertigo Past Surgical History: Procedure Laterality Date CERVICAL BIOPSY W/ LOOP ELECTRODE EXCISION 09/2019 LEEP SECTION, LOW TRANSVERSE 2004 family history includes Alcohol abuse in her maternal grandfather and mother; Arthritis in her father, maternal grandfather, and paternal grandfather; Breast cancer in her maternal grandmother; COPD in her maternal grandfather; Hyperlipidemia in her father and mother; Hypertension in her father and mother; Lung cancer in her maternal grandfather; vascular disease in her father and paternal grandfather. OBJECTIVE: Visit Vitals BP 130/90 (BP Location: Left arm, Patient Position: Sitting, BP Cuff Size: Adult long) Pulse 89 Temp 98.5 F (Temporal) Resp 19 Ht 5' 4 Wt 194 lb SpO2 96% BMI 33.30 kg/m OB Status Having periods Smoking Status Former BSA 1.99 m Physical Exam Vitals and nursing note reviewed. Constitutional: General: She is not in acute distress. Appearance: Normal appearance. HENT: Head: Normocephalic and atraumatic. Right Ear: External ear normal. There is impacted cerumen. Left Ear: Ear canal and external ear normal. Ears: Comments: Left TM: mild erythema, right TM: +fluid, dull in appearance Nose: Nose normal. No congestion or rhinorrhea. Mouth/Throat: Mouth: Mucous membranes are moist. Pharynx: No oropharyngeal exudate or posterior oropharyngeal erythema. Eyes: Extraocular Movements: Extraocular movements intact. Conjunctiva/sclera: Conjunctivae normal. Neck: Vascular: No carotid bruit. Cardiovascular: Rate and Rhythm: Normal rate and regular rhythm. Pulses: Normal pulses. Heart sounds: Normal heart sounds. No murmur heard. Pulmonary: Effort: Pulmonary effort is normal. Breath sounds: Normal breath sounds. No wheezing or rales. Abdominal: General: Bowel sounds are normal. There is no distension. Palpations: Abdomen is soft. There is no mass. Tenderness: There is no abdominal tenderness. Musculoskeletal: General: Normal range of motion. Cervical back: Normal range of motion and neck supple. Right lower leg: No edema. Left lower leg: No edema. Lymphadenopathy: Cervical: No cervical adenopathy. Skin: General: Skin is warm and dry. Capillary Refill: Capillary refill takes 2 to 3 seconds. Findings: No rash. Neurological: General: No focal deficit present. Mental Status: She is alert and oriented to person, place, and time. Psychiatric: Mood and Affect: Mood normal. Behavior: Behavior normal. Thought Content: Thought content normal. Judgment: Judgment normal. ASSESSMENT AND PLAN: Follow up if symptoms worsen or fail to improve. Problem List Items Addressed This Visit Obesity (BMI 30-39.9) - Primary Discussed with patient their BMI (actual, verses recommended). We have also discussed lifestyle modifications: attempts to perform physical activity as chronic conditions allow, also to monitor dietary intake: increasing protein/fruits/veggies and lowering carb intake (unless contraindicated). Limit sodas, juices, and sugary drinks. Opioid abuse, uncomplicated (CMS/HCC) Is currently taking suboxone and is under the care of Rosy Taylor SPECIAL PROCEDURES TECH RESOLVED: Chronic viral hepatitis C (CMS/HCC) Treated and cured Participant in health and wellness plan Relevant Orders CBC and differential Comprehensive metabolic panel Lipid panel Urinalysis with reflex microscopic (clean catch) TSH T4, free History of hepatitis C Treated and cured Impacted cerumen of right ear Irrigation: w water pick, 2 large earl chunks cerumen removed Pt tolerated well Does have hx of vertigo, has asked for refill of meclizine in case Vertigo Meclizine prn Relevant Medications meclizine (Antivert) 25 MG tablet Non-recurrent acute suppurative otitis media of right ear without spontaneous rupture of tympanic membrane Finish atb, if not better fu in office Relevant Medications azithromycin (Zithromax) 250 MG tablet Associated Problem(s): Opioid abuse, uncomplicated (CMS/HCC) Is currently taking suboxone and is under the care of Rosy Taylor NP Associated Problem(s): Obesity (BMI 30-39.9) Discussed with patient their BMI (actual, verses recommended). We have also discussed lifestyle modifications: attempts to perform physical activity as chronic conditions allow, also to monitor dietary intake: increasing protein/fruits/veggies and lowering carb intake (unless contraindicated). Limit sodas, juices, and sugary drinks. documented in this encounter [facility] 09-23-2024 Instructions Regina Swanson NP - 09/23/2024 8:40 AM EST Finish atb, follow up if not better Please get fasting labs completed documented in this encounter [facility] 08-22-2024 Telephone encount er Note Letter sent08/22/24 due to RAHEEM being out of the office 11/12/24 & pt needing to r/s. [facility] 08-22-2024 Miscellaneous Notes Formattin g of this note might be different from the original. Letter sent08/22/24 due to RAHEEM being out of the office 11/12/24 & pt needing to r/s. documented in this encounter [facility] 08-18-2024 History of Presen t illness Narrative Images from the original note were not included. Follow up Diagnosis: Psoriasis Location: scalp, in and around the ears (4% BSA) Last visit: 6 months ago Symptoms: nearly clear Status: improved Current treatment: Clobetasol solution and TAC 0.025% cream (switched to cream at last appt as ointment was too greasy --> patient likes a lot better and is overall happy with treatment) All pertinent medical history, medications, and allergies were reviewed. General Exam: alert, oriented to person, place, and time, normal affect, well appearing A focused exam completed based on patient reported problems, see below: 1. Psoriasis vulgaris (CMS/HCC) Left Cavum, Right Cavum, Scalp Much thinner less erythematous patches remain. Much improved today BSA <1%. Still clear today on the scalp. At this time as patient is improved but still flares, plan to continue current treatment. Refills prescribed today (no refills of TAC 0.025% cream needed per patient). Plan to follow up in a year for refills Related Medications triamcinolone (Kenalog) 0.025 % ointment Apply to affected areas, up to twice a day when flared, 30 day supply triamcinolone (Kenalog) 0.025 % cream Apply to affected areas, up to twice a day when flared, 30 day supply clobetasol (Temovate) 0.05 % external solution Apply to scalp Apply to affected areas, up to twice a day when flared, do not use one the face, groin, or underarms, 30 day supply Next Visit: 1 year documented in this encounter [facility] 09-24-2023 History of Presen t illness Narrative Associated Problem(s): Psoriasis (CMS/HCC) Refer to Siena Evans in [place], pt works in [employer] in 4 months Associated Problem(s): Arthralgia See Rheumatology notes, cont meloxicam Images from the original note were not included. Jovanna Brownlee is a 43 y.o. female presents with chief complaint of No chief complaint on file. HPI: Saw Rheumatology, he felt that her symptoms were related to Psoriatic Arthritis, wants her to see Dermatology No significant changes in her symptoms or knee pain etc Psoriasis is on scalp region SUBJECTIVE: MEDICATIONS: Current Outpatient Medications Medication Instructions albuterol (ProAir RespiClick) 90 mcg/act breath-activated inhaler Every 4 hours azelastine (Astelin) 0.1 % nasal spray 1 spray, Each Nostril, 2 times daily, Use in each nostril as directed Buprenorphine HCl-Naloxone HCl (Suboxone) 8-[address] 1 film by sublingual route every day allow to dissolve slowly in mouth without chewing or swallowing Sublingual meclizine (Antivert) 50 MG tablet Antivert meloxicam (MOBIC) 15 mg, Oral, Daily valACYclovir (VALTREX) 1,000 mg, Oral, 2 times daily ALLERGIES: Allergies Allergen Reactions Cephalexin Hives REVIEW OF SYMPTOMS: Review of Systems Constitutional: Negative for appetite change, chills and fever. HENT: Negative for congestion, ear pain and sore throat. Eyes: Negative for pain, discharge, redness and visual disturbance. Respiratory: Negative for cough, shortness of breath and wheezing. Cardiovascular: Negative for chest pain, palpitations and leg swelling. Gastrointestinal: Negative for abdominal pain, blood in stool, constipation, diarrhea, nausea and vomiting. Genitourinary: Positive for vaginal bleeding and vaginal discharge. Negative for difficulty urinating, dysuria and frequency. Musculoskeletal: Positive for arthralgias. Negative for back pain, joint swelling and myalgias. Skin: Positive for rash. Negative for wound. Neurological: Negative for dizziness, tremors, seizures, syncope and headaches. Psychiatric/Behavioral: Negative for behavioral problems, self-injury and suicidal ideas. The patient is not nervous/anxious. Hematological: Does not bruise/bleed easily. Endocrine: Negative for polydipsia, polyphagia and polyuria. Allergic/Immunologic: Negative for environmental allergies and food allergies. PAST MEDICAL HISTORY Past Medical History: Diagnosis Date HAYDEN positive 07/23/2023 Arthralgia 08/19/2023 Atypical squamous cells of undetermined significance (ASC-US) on cervical Pap smear Cervical dysplasia Chronic hepatitis C with hepatic coma (CMS/HCC) COPD (chronic obstructive pulmonary disease) (CMS/HCC) Elevated antinuclear antibody (HAYDEN) level Elevated antinuclear antibody (HAYDEN) level 07/23/2023 Elevated TSH Hepatitis C (CMS/HCC) 2009 treated Herpes Obesity (BMI 30-39.9) 07/23/2023 Opioid abuse (CMS/HCC) Pain of right calf Swelling of right knee joint Tobacco user TSH elevation 07/23/2023 Vertigo Past Surgical History: Procedure Laterality Date CERVICAL BIOPSY W/ LOOP ELECTRODE EXCISION 09/2019 LEEP SECTION, LOW TRANSVERSE 2004 family history includes Alcohol abuse in her maternal grandfather and mother; Arthritis in her father, maternal grandfather, and paternal grandfather; Breast cancer in her maternal grandmother; COPD in her maternal grandfather; Hyperlipidemia in her mother; Hypertension in her father and mother; Lung cancer in her maternal grandfather; vascular disease in her father and paternal grandfather. OBJECTIVE: Visit Vitals BP 122/88 (BP Location: Left arm, Patient Position: Sitting, BP Cuff Size: Adult long) Pulse 77 Temp 97.1 F (Temporal) Resp 18 Ht 5' 4 Wt 188 lb 6.4 oz SpO2 99% BMI 32.34 kg/m Smoking Status Former BSA 1.97 m Physical Exam Vitals reviewed. Constitutional: General: She is not in acute distress. Appearance: Normal appearance. HENT: Head: Normocephalic and atraumatic. Right Ear: External ear normal. Left Ear: External ear normal. Nose: Nose normal. Mouth/Throat: Mouth: Mucous membranes are moist. Eyes: Extraocular Movements: Extraocular movements intact. Conjunctiva/sclera: Conjunctivae normal. Cardiovascular: Rate and Rhythm: Normal rate and regular rhythm. Pulses: Normal pulses. Heart sounds: Normal heart sounds. Pulmonary: Effort: Pulmonary effort is normal. Breath sounds: Normal breath sounds. Abdominal: General: Bowel sounds are normal. There is no distension. Palpations: Abdomen is soft. There is no mass. Tenderness: There is no abdominal tenderness. Musculoskeletal: General: Normal range of motion. Cervical back: Normal range of motion and neck supple. Skin: General: Skin is warm and dry. Capillary Refill: Capillary refill takes 2 to 3 seconds. Findings: Rash (psoriatic skin rask to scalp) present. Neurological: General: No focal deficit present. Mental Status: She is alert and oriented to person, place, and time. Psychiatric: Mood and Affect: Mood normal. Behavior: Behavior normal. Thought Content: Thought content normal. Judgment: Judgment normal. ASSESSMENT AND PLAN: No follow-ups on file. Problem List Items Addressed This Visit Current smoker Obesity (BMI 30-39.9) Arthralgia - Primary See Rheumatology notes, cont meloxicam Relevant Orders Ambulatory referral to Dermatology Psoriasis (CMS/HCC) Refer to Siena Evans in [place], pt works in [employer] in 4 months Relevant Orders Ambulatory referral to Dermatology documented in this encounter [facility] Evaluation note Diagnosis Arthralgia, unspecified joint- Primary Obesity (BMI 30-39.9) Current smoker Psoriasis (CMS/HCC) Other psoriasis [facility] Diagnosis HAYDEN positive- Primary Current smoker Obesity (BMI 30-39.9) TSH elevation Arthralgia, unspecified joint- Primary Obesity (BMI 30-39.9) Current smoker Psoriasis (CMS/HCC) Other psoriasis Acute non-recurrent frontal sinusitis- Primary Obesity (BMI 30-39.9) Environmental and seasonal allergies Psoriasis vulgaris (CMS/HCC)- Primary Other psoriasis [facility] Diagnosis HAYDEN positive- Primary Current smoker Obesity (BMI 30-39.9) TSH elevation Arthralgia, unspecified joint- Primary Obesity (BMI 30-39.9) Current smoker Psoriasis (CMS/HCC) Other psoriasis Acute non-recurrent frontal sinusitis- Primary Obesity (BMI 30-39.9) Environmental and seasonal allergies Obesity (BMI 30-39.9)- Primary Chronic viral hepatitis C (CMS/HCC) Chronic hepatitis C without mention of hepatic coma Opioid abuse, uncomplicated (CMS/HCC) Participant in health and wellness plan History of hepatitis C Personal history of other infectious and parasitic disease Impacted cerumen of right ear Impacted cerumen Vertigo Dizziness and giddiness Non-recurrent acute suppurative otitis media of right ear without spontaneous rupture of tympanic membrane [facility] Diagnosis HAYDEN positive- Primary Current smoker Obesity (BMI 30-39.9) TSH elevation Arthralgia, unspecified joint- Primary Obesity (BMI 30-39.9) Current smoker Psoriasis (CMS/HCC) Other psoriasis Acute non-recurrent frontal sinusitis- Primary Obesity (BMI 30-39.9) Environmental and seasonal allergies Obesity (BMI 30-39.9)- Primary Chronic viral hepatitis C (CMS/HCC) Chronic hepatitis C without mention of hepatic coma Opioid abuse, uncomplicated (CMS/HCC) Participant in health and wellness plan History of hepatitis C Personal history of other infectious and parasitic disease Impacted cerumen of right ear Impacted cerumen Vertigo Dizziness and giddiness Non-recurrent acute suppurative otitis media of right ear without spontaneous rupture of tympanic membrane TSH elevation- Primary Elevated glucose Other abnormal glucose Abnormal CBC Other abnormal blood chemistry Microscopic hematuria [facility] Consultation (Routine) - Authorized Specialty Diagnoses / Procedures Referred By Jennyfer najera Referred To Contact Dermatology Diagnoses Arthralgia, unspecified joint Psoriasis (CMS/HCC) Procedures [place] OFFICE/OUTPATIENT [facility] 60 MINUTES Regina Swanson NP [address] [place] [address] Marianna Evans PA [address] [facility] [address] [place] [address] Referral ID Status Reason Start Date Expiration Date Visits Requested Visits Authorized [id number] Authorized Specialty Services Required 09/24/2023 03/22/2024 1 1 Scheduling Instructions Please send to kelsie vuong, pt works close to there [facility] Summary Purpose Family History No Family History Records FoundNo Family History Records FoundNo Family History Records Found Advance Directives No Advanced Directives Records FoundNo Advanced Directives Records FoundNo Advanced Directives Records Found Additional Source Comments INFORMATION SOURCE (unrecogn ized section and content) DATE CREATED AUTHOR 09/09/2020 [employer] [facility] DATE CREATED AUTHOR AUTHOR'S ORGANIZ ATION 05/12/2022 [facility] DATE CREATED AUTHOR AUTHOR'S ORGANIZ ATION 09/24/2024 [facility] Care Teams (unrecognized sec tion and content) Foil Spooler Relationship Specialty Start Date End Date iNk Hui MD [address] [place] [phone] PCP - General Family Medicine 09/24/23 [employer] Relationship Specialty Start Date End Date Nik Hui MD [address] [place] [phone] PCP - General Family Medicine 09/24/23 Foil Sp[employer]er Relationship Specialty Start Date End Date Nik Hui MD [address] [place] [phone] PCP - General Family Medicine 09/24/23 Foil Spooler Relationship Specialty Start Date End Date Nik Hui MD [address] [place] [phone] PCP - General Family Medicine 09/24/23 Foil Spooler Relationship Specialty Start Date End Date Nik Hui MD [address] [place] [phone] PCP - General Family Medicine 09/24/23 Foil Spooler Relationship Specialty Start Date End Date Nik Hui MD [address] [place] [phone] PCP - General Family Medicine 09/24/23 Reason for Visit (unrecogniz ed section and content) Reason Comments Follow-up FOR RECORDS PERTAINING TO PATIENTS WHO ARE OR HAVE BEEN ENROLLED IN A CHEMICAL DEPENDENCY/SUBSTANCEABUSE PROGRAM, SOME INFORMATION MAY BE OMITTED. This clinical summary was aggregated from multiple sources. Caution should be exercised in using it in the provision of clinical care. This summary normalizes information from multiple sources, and as a consequence, information in this document may materially change the coding, format and clinical context of patient data. In addition, data may be omitted in some cases. CLINICAL DECISIONS SHOULD BE BASED ON THE PRIMARY CLINICAL RECORDS. [facility]. provides no warranty or guarantee of the accuracy or completeness of information in this document.
--- NOTE | 2024-10-30 11:18 | ECG_ITS ---
[facility] Test Date: 2024-10-30 Pat Name: SUNI VILLALBA Department: Room: - Gender: Female Correctional Medicine Physician: : [id number] Requested By: [id number] Order Number: [id number] Reading MD: MANJINDER GALARZA Measurements Intervals [place] Rate: 84 P: 61 WY: 166 QRS: 91 QRSD: 90 T: 45 QT: 350 QTc: 391 Interpretive Statements 1100 Sinus rhythm 7102 Moderate right axis deviation 8102 Low QRS voltage in chest leads 9120 atypical ECG No previous ECG available for comparison Electronically Signed On 10-30-2024 12:10:58 EDT by MANJINDER GALARZA
--- NOTE | 2024-10-30 11:26 | ED.CHESTPAI1 ---
HPI - Chest Pain General Chief Complaint: Chest Pain Stated Complaint: CHEST & ARM PAIN Time Seen by Provider: 10/30/24 10:59 Source: patient Mode of arrival: walk-in History of Present Illness HPI narrative: Patient is 44-year-old female is coming to the ER with 2 weeks history of chest pain that has been intermittent, pain mostly comes at rest associated with no exertion, in the mid retrosternal area, and showed that the pain radiated to her left arm sometimes and she had it last time this morning, the pain when it comes it comes for few seconds and disappear by itself, not associated with any nausea vomiting or any dizziness, the patient mentioned that she have a history of chronic neck problems that he has not addressed, she did take some prednisone that she had at home for previous illness and she mentioned that her neck pain got better, The patient denies any fall trauma or any other concern, she also denies any exacerbation of the pain with taking a deep breath or any association with a cough or fever. Patient have a history of vaping and she mentioned that she is worried because she had to colleagues at work when at the mall at her age that fell and and the other 1 was 2 years older than her. The patient denies any neck pain at the moment although she mentioned that sometimes she will feel that things fall off from her left hand when doing things at home in the morning. Patient denies any weakness at the moment Related Data Home Medications ?Medication ?Instructions ?Recorded ?Confirmed buprenorphine 8 mg-naloxone 2 mg film 10/30/24 sublingual film meloxicam 7.5 mg tablet 7.5 mg PO DAILY 10/30/24 10/30/24 Allergies Allergy/AdvReac Type Severity Reaction Status Date / Time cephalexin (From Keflex) Allergy Hives Verified 10/30/24 11:01 Review of Systems ROS Status of ROS 10 or more systems reviewed and unremarkable except as noted in history and below PFSH PFSH Social History Little interest or pleasure in doing things: not at all Feeling down, depressed, or hopeless: not at all Exam Narrative Exam Narrative: Nurses notes and vital signs reviewed and patient is not hypoxic. General: Well-appearing and in no apparent distress. Skin: Warm, dry, no pallor noted. No rash. Head: Normocephalic, atraumatic. Neck: Supple, non-tender. Eye: Pupils are equal, round and EOMI. No scleral icterus. Ears, Nose, Mouth, and Throat: TM are clear, no nasal mucosal hypertrophy. Oral mucosa is moist, no posterior oropharynx erythema, uvula is mid-line Cardiovascular: Regular Rate and Rhythm without murmur, gallop or rub. Respiratory: No accessory muscle use or respiratory distress. Lungs are clear to auscultation, no wheezing, rales or rhonchi Chest Wall: no tenderness Back: No midline thoracic or lumbar vertebral tenderness. No CVA tenderness Musculoskeletal: normal ROM, no calf or popliteal tenderness, no lower extremity edema/swelling GI: Abdomen is soft, non-distended. Normal bowel sounds. No masses appreciated. No tenderness to palpation. No rebound, guarding, or rigidity noted. Neurological: A&O x4. No cranial nerve dysfunction observed. No truncal ataxia. Moves all extremities. Sensation intact. Psychiatric: Cooperative and interactive. Normal mood and affect. Constitutional Vital Signs, click to edit/add: Last Vital Signs Temp 98.2 F 10/30/24 11:01 Pulse 78 10/30/24 11:30 Resp 13 10/30/24 11:30 BP 143/95 H 10/30/24 11:01 Pulse Ox 98 10/30/24 11:28 O2 Del Method Room Air 10/30/24 11:28 Course Vital Signs Vital signs: Vital Signs Blood Pressure 143/95 H 10/30/24 11:00 Pulse Oximetry 100 10/30/24 11:00 Temperature 98.2 F 10/30/24 11:01 Pulse Rate 78 10/30/24 11:30 Respiratory Rate 13 10/30/24 11:30 Blood Pressure 143/95 H 10/30/24 11:01 Pulse Oximetry 98 10/30/24 11:28 Oxygen Delivery Method Room Air 10/30/24 11:28 MDM - Chest Pain MDM Narrative Medical decision making narrative: EKG showing sinus rhythm with a heart rate of [address] elevation or depression Patient denies any neck pain at the moment Chest x-ray showed no acute pathology CBC and chemistry as well as troponin and D-dimer are negative Patient also had a negative test As the patient feeling much better after she knew that she does not have any acute issue it seemed that she had some underlying anxiety from her incident associated with her colleagues at work The patient to monitor her intake of any acid reflux inducing foods especially that she had her pain today after drinking coffee The patient is to follow up with primary care physician in next 2-3 days or to return to the emergency department should any of the signs or symptoms worsen or new symptoms develop. The patient agrees with the following Diagnosis and Treatment plan and the patient will be discharged home. Lab Data Labs: Lab Results 10/30/24 Range/Units 11:30 WBC 4.4 (4.0-11.0) 10^3/uL RBC 4.51 (4.20-5.40) 10^6/uL Hgb 14.8 (12.0-16.0) g/dL Hct 42.6 (36.0-48.0) % MCV 94.5 (81.0-99.0) fL MCH 32.8 (26.7-34.0) pg MCHC 34.7 (29.9-35.2) g/dL RDW 12.1 (11.0-15.0) % Plt Count 165 (150-450) 10^3/uL MPV 11.3 (9.5-13.5) fL Neut % (Auto) 59.6 (43.0-75.0) % Lymph % (Auto) 28.3 (20.5-60.0) % [place] % (Auto) 9.0 (1.7-12.0) % Eos % (Auto) 1.8 (0.9-7.0) % Baso % (Auto) 1.1 (0.2-2.0) % Neut # (Auto) 2.6 (1.4-6.5) 10^3/uL Lymph # (Auto) 1.2 (1.2-3.8) 10^3/uL [place] # (Auto) 0.4 (0.3-0.8) 10^3/uL Eos # (Auto) 0.1 (0.0-0.7) 10^3/uL Baso # (Auto) 0.1 (0.0-0.1) 10^3/uL Abs Immat Gran (auto) 0.01 (0.00-0.03) 10^3/uL Imm/Tot Granulo (auto) 0.2 (0.0-0.5) % PT 10.3 (9.0-11.6) sec INR 0.97 D-Dimer 0.25 (<=0.59) mg/L FEU Sodium 140 (136-145) mmol/L Potassium 4.3 (3.5-5.1) mmol/L Chloride 105 (98-107) mmol/L Carbon Dioxide 30.8 (21.0-32.0) mmol/L Anion Gap 8.5 BUN 14.0 (7.0-18.0) mg/dL Creatinine 0.90 (0.55-1.02) mg/dL Est GFR ( Amer) >60 (>=60 mL/min/1.73m^2) Est GFR (Non-Af Amer) >60 (>=60 mL/min/1.73m^2) BUN/Creatinine Ratio 15.6 Glucose 103 (74-106) mg/dL Calcium 9.4 (8.5-10.1) mg/dL Total Bilirubin 0.7 (0.2-1.0) mg/dL AST 17 (15-37) U/L ALT 14 (14-59) U/L Alkaline Phosphatase 62 (46-116) U/L Troponin I High Sens <4.0 L (4.0-51.3) pg/mL Total Protein 7.1 (6.4-8.2) g/dL Albumin 3.9 (3.4-5.0) g/dL Globulin 3.2 g/dL Albumin/Globulin Ratio 1.2 Serum HCG, Qual Negative (NEGATIVE) Discharge Plan Discharge Chief Complaint: Chest Pain Clinical Impression: Atypical chest pain Patient Disposition: Home, Self-Care Time of Disposition Decision: 12:14 Condition: Good Prescriptions / Home Meds: No Action meloxicam 7.5 mg tablet 7.5 mg PO DAILY buprenorphine-naloxone 8-2 mg film Print Language: Occitan Instructions: Chest Pain (ED), Chest Wall Pain (ED) Referrals: Regina Swanson NP [Primary Care Provider] - 1 week
[2024-10-30 11:38] LABS: Basophils Absolute Auto 0.1 10^3/uL (0.0-0.1); Basophils Percent Auto 1.1 % (0.2-2.0); Eosinophils Absolute Auto 0.1 10^3/uL (0.0-0.7); Eosinophils Percent Auto 1.8 % (0.9-7.0); Hematocrit 42.6 % (36.0-48.0); Hemoglobin 14.8 g/dL (12.0-16.0); Immature Granulocytes Abs Auto 0.01 10^3/uL (0.00-0.03); Immature Granulocytes Pct Auto 0.2 % (0.0-0.5); Lymphocytes Absolute Auto 1.2 10^3/uL (1.2-3.8); Lymphocytes Percent Auto 28.3 % (20.5-60.0); Mean Corpuscular HGB Conc 34.7 g/dL (29.9-35.2); Mean Corpuscular Hemoglobin 32.8 pg (26.7-34.0); Mean Corpuscular Volume 94.5 fL (81.0-99.0); Mean Platelet Volume 11.3 fL (9.5-13.5); Monocytes Absolute Auto 0.4 10^3/uL (0.3-0.8); Neutrophils Absolute Auto 2.6 10^3/uL (1.4-6.5); Neutrophils Percent Auto 59.6 % (43.0-75.0); Platelet Count 165 10^3/uL (150-450); Red Blood Count 4.51 10^6/uL (4.20-5.40); Red Cell Distribution Width 12.1 % (11.0-15.0); White Blood Count 4.4 10^3/uL (4.0-11.0)
[2024-10-30 11:54] LABS: HCG Qualitative NEGATIVE (NEGATIVE); INR 0.97; Internal Control Within Normal Limits; Prothrombin Time 10.3 sec (9.0-11.6)
[2024-10-30 11:57] LABS: Alanine Aminotransferase 14 U/L (14-59); Albumin Globulin Ratio 1.2; Albumin Level 3.9 g/dL (3.4-5.0); Alkaline Phosphatase 62 U/L (46-116); Anion Gap 8.5; Aspartate Amino Transferase 17 U/L (15-37); BUN Creatinine Ratio 15.6; Bilirubin Total 0.7 mg/dL (0.2-1.0); Calcium 9.4 mg/dL (8.5-10.1); Carbon Dioxide 30.8 mmol/L (21.0-32.0); Chloride 105 mmol/L (98-107); Estimated GFR (African America >60 (>=60 mL/min/1.73m^2); Estimated GFR (Non-African Ame >60 (>=60 mL/min/1.73m^2); Globulin 3.2 g/dL; Glucose 103 mg/dL (74-106); Potassium 4.3 mmol/L (3.5-5.1); Sodium 140 mmol/L (136-145); Total Protein 7.1 g/dL (6.4-8.2); Troponin I High Sensitivity <4.0 pg/mL (4.0-51.3)
[2024-10-30 12:01] LABS: D Dimer 0.25 mg/L FEU (<=0.59)
[2024-10-30] MEDS: KETOROLAC TROMETHAMINE 30 MG/ML VIAL 15 MG IVP (12:03)
[2024-10-30] MEDS: FAMOTIDINE/PF 20 MG/2 ML VIAL IV (12:03)
== END 2024-10-30 12:32 | disposition home or self-care (01) ==
PROVIDERS: Emergency Provider Emergency Medicine; PCP Nurse Practitioner
DX: R07.89 Other chest pain (principal); F17.290 Nicotine dependence, other tobacco product, uncomplicated
CPT/HCPCS: 36415; 71045; 80053; 84484; 84703; 85025; 85378; 85610; 93005; 96374; 96375; 99285; J1885; J3490

== ENCOUNTER 2025-06-23 08:52 | Outpatient (OUT) | payer OTHER, MEDICAID, SELFPAY ==
--- OUTSIDE RECORDS SUMMARY | 2010-09-12 08:00 | XMS_ITS | Continuity of Care Document ---
Author Organization [facility] Address [address] [place] [address] Phone Care Team Providers Care Surveyor [employer] Name Role Phone Michael Lucas Unavailable Unavailable Procedures Procedure Date No Charge OFFICE/OUTPATIENT VISIT, EST URINALYSIS, NONAUTO W/SCOPE ROUTINE VENIPUNCTURE HIV-1 Condoms OFFICE/OUTPATIENT VISIT, EST [facility] ZITHROMAX SPECIMEN HANDLING OFFICE/OUTPATIENT VISIT, [facility] URINALYSIS, NONAUTO W/SCOPE SPECIMEN HANDLING URINE TEST Condoms Advance Directives Directive Yes / No Effective Date File Name No Information Encounters Encounter Description Practice Location Reason(s) For Visit Diagnoses Date Provider Providers Copied on Encounter [facility], [address] [place] [address], [id number], [place] tel:[phone] [facility] No Information Shayy Rodriguez. [address], [place], [id number], [place]. tel:[phone] OFFICE/OUTPATI ENT VISIT, [facility], [address], [place], [id number], [place] tel:[phone] [facility] No Information Shayy Rodriguez. [address], [place], [id number], [place]. tel:[phone] OFFICE/OUTPATI ENT VISIT, [facility], [address], [place], [id number], tel:[phone] [facility] No Information Shayy . [address], [place], [id number], [place]. tel:[phone] OFFICE/OUTPATI ENT VISIT, [facility], [address], [place], [id number], tel:[phone] [facility] No Information Shayy . [address], [place], [id number], [place]. tel:[phone] Family History Family Member Type Diagnosis Age At Onset No Information Payers Payer name Insurance type Covered republican ID Lyndsey tobin(s) [employer] [place] [id number] Social History Type Description Quantity Date Captured Comments Sex Female Smoking Status No Information Chief Complaint And Reason For Visit No Information Reason For Referral Reason For Referral No Information History Of Present Illness Encounter Date Complaint History Of Prese nt Illness No Information Functional Status Date Functional Assessmen t No Information Instructions Date Instruction Additional Infor mation No Information Assessments Type Assessment Date No Information Patient Care Teams Name Effective Dates (start - stop) Status Members No Information
--- OUTSIDE RECORDS SUMMARY | 2025-06-10 17:00 | XMS_ITS | Encounter Summary ---
Author Organization [facility] Address [address] [place] [address] Care Team Providers Care Package Pick Up Name Role Phone Nik Pineda MD Primary Care Provider [phone] Reason for Visit * Rehabilitation - Outpatient (Routine) - AuthorizedSpecialtyDiagnoses / ProceduresReferred By ContactReferred To ContactPhysical Therapy Diagnoses Cervicalgia Procedures [place] PHYSICAL THERAPY EVALUATION LOW COMPLEX 20 MINS [place] OFFICE/OUTPATIENT NEW HIGH MDM 60 MINUTES Yusuf Lowry MD [address] [facility] [address] [place] [address] Phone: tel: fax: Ju Berman, PT Referral IDStatusReasonStart DateExpiration DateVisits RequestedVisits [id number]/22/202512/[id number] Encounter Details DateTypeDepartmentCare Team (Latest Contact Info)Svukqdrhjfi06/29/2025 6:00 PM EDTTreatment [facility] [address] [place] [address] Margoth Graham, TIRE MOLDER Cervicalgia (Primary Dx) Social History Tobacco UseTypesPacks/DayYears UsedDateSmoking Tobacco: FormerCigarettes 08/26/1993 - 1Smokeless Tobacco: Current Comments:I still vape using nicotine Alcohol UseStandard Drinks/WeekCommentsNot Currently0 (1 standard drink = 0.6 oz pure alcohol)caffeine 2-3 cups per [id number] Health LiteracyAnswerDate Recorded How often do you need to have someone help you when you read instructions, pamphlets, or other written material from your doctor or pharmacy?Never 09/19/2024Humiliation, Afraid, Rape, and Kick questionnaireAnswerDate Recorded Within the last year, have you been afraid of your partner or ex-partner?No 07/16/2023Within the last year, have you been humiliated or emotionally abused in other ways by your partner or ex-partner?No07/16/2023Within the last year, have you been kicked, hit, slapped, or otherwise physically hurt by your partner or ex-partner?No07/16/2023Within the last year, have you been raped or forced to have any kind of sexual activity by your partner or ex-partner?No07/16/2023 Social Connection and Isolation PanelAnswerDate RecordedFrequency of Communication with Friends and FamilyNot on file09/19/2024Frequency of Social Gatherings with Friends and FamilyNot on file09/19/2024ttends Taoism ServicesNot on file09/19/2024Do you belong to any clubs or organizations such as cheondoism groups, unions, fraternal or athletic groups, or school groups?No 09/19/2024How often do you attend meetings of the clubs or organizations you belong to?Patient /07/2025re you , , , , never , or living with a partner?Hpuyvxb5609/19/2024UDIT-C AnswerDate RecordedQ1: How often do you have a drink containing alcohol?Never 09/19/2024Q2: How many drinks containing alcohol do you have on a typical day when you are drinking?Patient does not drink09/19/2024Q3: How often do you have six or more drinks on one occasion?Never09/19/2024Overall Financial Resource Strain (CARDIA)AnswerDate RecordedHow hard is it for you to pay for the very basics like food, housing, medical care, and heating?Not hard at all09/19/2024 PHQ-2AnswerDate RecordedPatient Health Questionnaire-2 [id number] [place] of Occupational Health - Occupational Stress QuestionnaireAnswerDate RecordedDo you feel stress - tense, restless, nervous, or anxious, or unable to sleep at night because yourmind is troubled all the time - these days?Not at all 09/19/2024Exercise Vital SignAnswerDate RecordedOn average, how many days per week do you engage in moderate to strenuous exercise (like a brisk walk)?1 day 09/19/2024On average, how many minutes do you engage in exercise at this level? 10 min09/19/2024Hunger Vital SignAnswerDate RecordedWithin the past 12 months, you worried that your food would run out before you got the money to buymore. Never true09/19/2024Within the past 12 months, the food you bought just didn't last and you didn't have money to get more.Never true09/19/2024PRAPARE - TransportationAnswerDate RecordedIn the past 12 months, has lack of transportation kept you from medical appointments or from getting medications?No 09/19/2024In the past 12 months, has lack of transportation kept you from meetings, work, or from getting things needed for daily living?No09/19/2024 Housing Stability Vital SignAnswerDate RecordedIn the last 12 months, was there a time when you were not able to pay the mortgage or rent on time?No07/16/2023In the last 12 months, how many places have you lived?In the last 12 months, was there a time when you did not have a steady place to sleep or slept in [place] (including now)?No07/16/2023Housing Stability Vital SignAnswerDate RecordedIn the last 12 months, was there a time when you were not able to pay the mortgage or rent on time?No09/19/2024In the past 12 months, how many times have you moved where you were living?t any time in the past 12 months, were you homeless or living in a longterm (including now)?No09/19/2024 CommentsNoSex and Gender InformationValueDate RecordedSex Assigned at ZxbnvTcpgsp84/01/2023 10:41 AM EDTLegal LpsOajvuq41/15/2023 6:58 PM EDTGender RqkeyekrKpstzk29/08/2022 10:41 AM EDTSexual IdiuaqixvmbZuxldwfn76/01/2023 10:41 AM EDTdocumented as of this encounter Progress Notes * Margoth Graham, TIRE MOLDER - 06/10/2025 6:00 PM EDT Images from the original note were not included. Physical Therapy Treatment Visit Patient Name: Jovanna Brownlee Today's Date: 06/10/2025 Encounter Diagnoses Name Primary? Cervicalgia Yes Visit number: 2 Timed Code Treatment : 35 minutes Total Treatment Time: 45 minutes Time In: 6:00 PM Time Out: 6:45 PM History: Pt states she has been having pain in neck for about a year. Pain severity seems to come and go. Was seen by RA Ponce and X-ray was done in November. Pt states x-ray showed straightening of normalcurvature. Pt states continues to have pain, especially when driving. Pt states she has been also having issues with vertigo in the past which seems to be worsening. States will have MRI to try to determine source of ongoing vertigo. Precautions: [place] Subjective: left side of neck pain, states she's been having vertigo episodes that wont last long Pain: 10/20 Objective: PT Evaluation (06/03/2025) CERVICAL AROM: 48 degrees flexion, 45 degrees extension, 35 degrees right SB with pulling left lower cervical region, 25 degrees left SB and right sided neck pain with overpressure, 60 degrees right rotation,50 degrees left rotation Joint play: decrease cervical mobility with lateral glides, decrease mid thoracic mobility Muscle length: tightness right UT Palpation: min tenderness left UT and LS; increase muscle tone right LS at superior angle of trap Special Test: negative cervical compression, left sided neck pain with left Spurling's, right Spurling's negative Neurological: Reflexes: not tested Myotomes: intact Dermatomes: intact Treatment: Manual Therapy: (15 minutes) Delivered Manual distraction and mobs, bilateral upper trap stretchingto increase mobility, decrease pain Therapeutic Exercise: (20 minutes) Guided pt through ther and flex ex per grid to improve cervical,postural muscle awareness, functional Strength, Endurance, Flexibility, ROM, HEP, Neural Mobilization, Power, and Core Stability as needed. Therapeutic Activity: Exercises to improve dynamic activities, functional tasks, functional mobility to return to prior activity level as needed. Neuromuscular re-education: Balance Training, Muscle Facilitation, Dynamic Stability, Core Stabilization, and Blood Flow Restriction Training (BFRT) as needed. Modalities:(10 minutes ) Post session cervical MHP in supine to reduce muscle soreness Assessment: Visit #2 pt with complaints of chronic neck pain. Pt with increase muscle tone right UTand LS. Moderate tenderness bilateral UT and superior angle of scapulas. Limited ROM and mobility addressed with manual ther. Reeducated pt on importance of performing HEP. Ended session with MHP Outcome Measure: Neck Disability Index (NDI): Rehab Diagnosis: neck pain, limited ROM and mobility Short Term Goal: To be met in 2 weeks Goal 1: Pt to be instructed in home exercise program. Per Diem Registered Nurse Goals: To be met in 10 weeks Goal 1: Pt to report independence and compliance with home program. Goal 2: Pt to achieve 65 degrees of bilateral cervical rotation to assist with driving and ADL's. Goal 3: Pt to report pain no greater than 2/10 in cervical region with functional mobility and ADL's. Goal 4: Pt to score no greater than 3/50 on NDI indicating improved QOL. Goal 5: Pt to have little to no tenderness bilateral UT indicating improved tissue quality. Pt will benefit from skilled PT for 2x/week from 06/03/2025 to 09/01/2025 to address the above impairments. I hereby deem this POC medically necessary. Please sign below. Date: Cosigned by Ju Berman, PT at 06/17/2025 8:48 AM EST documented in this encounter Plan of Treatment DateTypeDepartmentCare Team (Latest Contact Info)Gjxymeisrch91/11/2025 5:00 PM ESTTreatment [facility] [address] [place] [address] BrIrineo amdrigal, TIRE MOLDER 06/26/2025 3:00 PM ESTTreatment [facility] [address] [place] [address] Irineo Moser, TIRE MOLDER 08/17/2025 1:30 PM ESTOffice Visit [facility] [address] [place] [id number] Marianna Caballero, PA [address] [place] [address] 12/09/2025 2:45 PM EDTOffice Visit [facility] [address] [place] [address] Zaid Cutler DO [address] [place] [address] documented as of this encounter Visit Diagnoses Diagnosis Cervicalgia- Primary documented in this encounter Care Teams Team MemberRelationshipSpecialtyStart DateEnd Date Nik Pineda MD PCP - GeneralFamily Medicine09/24/23documented as of this encounter
--- OUTSIDE RECORDS SUMMARY | 2025-06-16 15:30 | XMS_ITS | Encounter Summary ---
Author Organization [facility] Address [address] [place] [address] Care Team Providers Care Business Account Manager Name Role Phone Nik Pineda MD Primary Care Provider [phone] Reason for Visit * Rehabilitation - Outpatient (Routine) - AuthorizedSpecialtyDiagnoses / ProceduresReferred By ContactReferred To ContactPhysical Therapy Diagnoses Cervicalgia Procedures [place] PHYSICAL THERAPY EVALUATION LOW COMPLEX 20 MINS [place] OFFICE/OUTPATIENT NEW HIGH MDM 60 MINUTES Yusuf Lowry MD [address] [facility] [address] [place] [address] Phone: tel: fax: Ju Berman, PT Referral IDStatusReasonStart DateExpiration DateVisits RequestedVisits [id number]/22/202512/[id number] Encounter Details DateTypeDepartmentCare Team (Latest Contact Info)Doapvdilthn87/04/2025 3:30 PM ESTTreatment [facility] [address] [place] [address] Miley Torrez, LABOR[employer] Cervicalgia (Primary Dx) Social History Tobacco UseTypesPacks/DayYears UsedDateSmoking Tobacco: FormerCigarettes 08/26/1993 - 1Smokeless Tobacco: Current Comments:I still vape using nicotine Alcohol UseStandard Drinks/WeekCommentsNot Currently0 (1 standard drink = 0.6 oz pure alcohol)caffeine 2-3 cups per [id number] Health LiteracyAnswerDate Recorded How often do you [...] Gatherings with Friends and FamilyNot on file09/19/2024ttends Tenriism ServicesNot on file09/19/2024Do you belong to any clubs or organizations such as mormon groups, unions, fraternal or athletic groups, or school groups?No 09/19/2024How often do you attend meetings of the clubs or organizations you belong to?Patient bjtiydbj57/07/2025re you , , , , never , or living with a partner?Iqjwzdq6709/19/2024UDIT-C AnswerDate RecordedQ1: How often do you have [...] hard at all09/19/2024 PHQ-2AnswerDate RecordedPatient Health Questionnaire-2 [id number] river [facility] hospital [place] of Occupational Health - Occupational Stress QuestionnaireAnswerDate [...] steady place to sleep or slept in [facility] (including now)?No07/16/2023Housing Stability Vital SignAnswerDate RecordedIn the last 12 months, was there a time when you were not able to pay the mortgage or rent on time?No09/19/2024In the past 12 months, how many times have you moved where you were living?t any time in the past 12 months, were you homeless or living in a senior living (including now)?No09/19/2024 CommentsNoSex and Gender InformationValueDate RecordedSex Assigned at ZgdfrXlotzs30/01/2023 10:41 AM EDTLegal EwhLzqlvv83/15/2023 6:58 PM EDTGender TpodnmmcIyjiit27/01/2023 10:41 AM EDTSexual JaehmapdhcuUhmqslkg68/01/2023 10:41 AM EDTdocumented as of this encounter Progress Notes * Miley Torrez, [employer] - 06/16/2025 3:30 PM EST Images from the original note were not included. Physical Therapy Treatment Visit Patient Name: Jovanna Brownlee Today's Date: 06/16/2025 Encounter Diagnoses Name Primary? Cervicalgia Yes Visit number: 3 Timed Code Treatment : 35 minutes Total Treatment Time: 45 minutes Time In: 3:30 PM Time Out: 4:15 PM History: Pt states she has been [...] to determine source of ongoing vertigo. Precautions: [place] Subjective: Pt reports can notice a positive difference in neck mobility. States she was able to turn it more when she was at the stop sign the other day. Pt notes vertigo symptoms depend on the day,symptoms last for a second sometimes longer, it depends. Pain: 10/20 Objective: PT Evaluation (06/03/2025) CERVICAL [...] supine to reduce muscle soreness Assessment: Visit #3 pt with complaints of chronic neck pain. Pt with increase muscle tone right UTand LS. Mod tenderness bilateral UT and superior angle of scapulas. Mild improved cervical spine mobility but still slightly restricted in rotation. MHP used at end of session. Will continue to monitor and progress as tolerated. Outcome Measure: Neck Disability Index (NDI): Rehab Diagnosis: neck pain, limited ROM and mobility Short Term Goal: To be met in 2 weeks Goal 1: Pt to be instructed in home exercise program. Mcfp Goals: To be met in 10 weeks [...] Please sign below. Date: Cosigned by Ju Berman PT at 06/19/2025 2:36 PM EST documented in this encounter Plan of Treatment DateTypeDepartmentCare Team (Latest Contact Info)Kuejvdtxwbl63/11/2025 5:00 PM ESTTreatment [facility] [address] [place] [address] Irineo Moser, [employer] 06/26/2025 3:00 PM ESTTreatment [facility] [address] [place] [address] RafaelaIrineo madrigal, LAB[employer] 08/17/2025 1:30 PM ESTOffice Visit [facility] [address] [place] [address] Marianna Caballero PA [address] [place] [address] 12/09/2025 2:45 PM EDTOffice Visit [facility] [address] [place] [phone] Zaid Cutler DO [address] [place] [address] documented as of this encounter Visit Diagnoses Diagnosis Cervicalgia- Primary documented in this encounter Care Teams Team MemberRelationshipSpecialtyStart DateEnd Date Nik Pineda MD PCP - GeneralFamily Medicine09/24/23documented as of this encounter
--- OUTSIDE RECORDS SUMMARY | 2025-06-23 08:56 | XMS_ITS | Encounter Summary ---
Author Organization [facility] Address [address] [place] [address] Care Team Providers Care Electrical Engineering Manager Name Role Phone Nik Pineda MD Primary Care Provider Encounter Details DateTypeDepartmentCare Team (Latest Contact Info)Rahchebyhuw94/29/2025amboo flowsheet [facility] [address] [place] [address] Margoth Graham PTA Social History Tobacco UseTypesPacks/DayYears UsedDateSmoking Tobacco: FormerCigarettes 08/26/1993 - 1Smokeless Tobacco: Current Comments:I still vape using nicotine Alcohol UseStandard Drinks/WeekCommentsNot Currently0 (1 standard drink = 0.6 oz pure alcohol)caffeine 2-3 cups per [id number] Health LiteracyAnswerDate Recorded How often do you [...] Gatherings with Friends and FamilyNot on file09/19/2024ttends Jehovah'S Witness ServicesNot on file09/19/2024Do you belong to any clubs or organizations such as buddhist groups, unions, fraternal or athletic groups, or school groups?No 09/19/2024How often do you attend meetings of the clubs or organizations you belong to?Patient oziqektw44/07/2025re you , , , , never , or living with a partner?Dlxkqah0409/19/2024UDIT-C AnswerDate RecordedQ1: How often do you have [...] hard at all09/19/2024 PHQ-2AnswerDate RecordedPatient Health Questionnaire-2 Uxthz218Fin[facility] [place] of Occupational Health - Occupational Stress QuestionnaireAnswerDate [...] steady place to sleep or slept in flagstaffelter (including now)?No07/16/2023Housing Stability Vital SignAnswerDate RecordedIn the last 12 months, was there a time when you were not able to pay the mortgage or rent on time?No09/19/2024In the past 12 months, how many times have you moved where you were living?t any time in the past 12 months, were you homeless or living in a prison (including now)?No09/19/2024 CommentsNoSex and Gender InformationValueDate RecordedSex Assigned at QbkwbPgrcps32/01/2023 10:41 AM EDTLegal OuoZtnkxs57/15/2023 6:58 PM EDTGender IayzulbcWriaof77/01/2023 10:41 AM EDTSexual FiscodeiipqTuwtldkp23/01/2023 10:41 AM EDTdocumented as of this encounter Plan of Treatment DateTypeDepartmentCare Team (Latest Contact Info)Sfdmsfkywlr95/11/2025 5:00 PM ESTTreatment [facility] [address] [facility] [address] [place] [address] Irineo Moser, NICHOLAS 06/26/2025 3:00 PM ESTTreatment [facility] [address] [facility] [address] [place] [address] Irineo Moser PTA 08/17/2025 1:30 PM ESTOffice Visit [facility] [address] [place] [address] Marianna Caballero, KIMBERLEY [address] [place] [address] 12/09/2025 2:45 PM EDTOffice Visit [facility] [address] [place] [address] Zaid Cutler DO [address] [place] [address] documented as of this encounter Visit Diagnoses Not on filedocumented in this encounter Care Teams Team MemberRelationshipSpecialtyStart DateEnd Date Nik Pineda MD PCP - GeneralFamily Medicine09/24/23documented as of this encounter
--- OUTSIDE RECORDS SUMMARY | 2025-06-23 08:56 | XMS_ITS | Encounter Summary ---
Author Organization [facility] Address [address] [place] [address] Care Team Providers Care Watch Parts Grinder Name Role Phone Nik Pineda MD Primary Care Provider [phone] Encounter Details DateTypeDepartmentCare Team (Latest Contact Info)Psjzrxkbpbv78/28/2025Travel Social History Tobacco UseTypesPacks/DayYears UsedDateSmoking Tobacco: FormerCigarettes 08/26/1993 - 03/18/2021mokeless Tobacco: Current Comments:I still vape using nicotine Alcohol UseStandard Drinks/WeekCommentsNot Currently0 (1 standard drink = 0.6 oz pure alcohol)caffeine 2-3 cups per [id number] Health LiteracyAnswerDate Recorded How often do you [...] Gatherings with Friends and FamilyNot on file09/19/2024ttends Confucianism ServicesNot on file09/19/2024Do you belong to any clubs or organizations such as zoroastrian groups, unions, fraternal or athletic groups, or school groups?No 09/19/2024How often do you attend meetings of the clubs or organizations you belong to?Patient qqcuybfy49/07/2025re you , , , , never , or living with a partner?Qxyxdxm2209/19/2024UDIT-C AnswerDate RecordedQ1: How often do you have [...] hard at all09/19/2024 PHQ-2AnswerDate RecordedPatient Health Questionnaire-2 Hoimx210Finameric[facility] [place] of Occupational Health - Occupational Stress QuestionnaireAnswerDate [...] steady place to sleep or slept in ashelter (including now)?No07/16/2023Housing Stability Vital SignAnswerDate RecordedIn the last 12 months, was there a time when you were not able to pay the mortgage or rent on time?No09/19/2024In the past 12 months, how many times have you moved where you were living?t any time in the past 12 months, were you homeless or living in a fpc (including now)?No09/19/2024 CommentsNoSex and Gender InformationValueDate RecordedSex Assigned at DgkfxOwtcrv48/01/2023 10:41 AM EDTLegal SztSwmuxj80/15/2023 6:58 PM EDTGender GisvvkoyMojons75/01/2023 10:41 AM EDTSexual DyxubcznumaKwvktrpu76/01/2023 10:41 AM EDTdocumented as of this encounter Plan of Treatment DateTypeDepartmentCare Team (Latest Contact Info)Pfyqigyrsxz40/11/2025 5:00 PM ESTTreatment [facility] [address] [facility] [address] [place] [address] Irineo Moser, NICHOLAS 06/26/2025 3:00 PM ESTTreatment [facility] [address] [facility] [address] [place] [address] Irineo Moser, NICHOLAS 08/17/2025 1:30 PM ESTOffice Visit [facility] [address] [facility] [place] [address] Marianna Caballero, KIMBERLEY [address] [place] [address] 12/09/2025 2:45 PM EDTOffice Visit [facility] [address] [place] [address] Zaid Cutler DO [address] [place] [address] documented as of this encounter Visit Diagnoses Not on filedocumented in this encounter Care Teams Team MemberRelationshipSpecialtyStart DateEnd Date Nik Pineda MD PCP - GeneralFamily Medicine09/24/23documented as of this encounter
--- OUTSIDE RECORDS SUMMARY | 2025-06-23 08:56 | XMS_ITS | Clinical Summary ---
Author Organization [facility] Address [id number] [place] [address] Care Team Providers Care Slat Pickler Name Role Phone No Pcp, No Pcp Primary Care Provider Unavailabl e Allergies No known active allergies Medications No known medications Active Problems ProblemNoted DateDiagnosed DateHepatitis C, acute08/13/2008 Social History Tobacco UseTypesPacks/DayYears UsedDateSmoking Tobacco: Every DayCigarettes0.520 Smokeless Tobacco: NeverAlcohol UseStandard Drinks/WeekCommentsNot Currently0 (1 standard drink = 0.6 oz pure alcohol)ChildcareAnswerDate RecordedChildcare Tchxniu0901/20/2019EmploymentAnswerDate GfizsblfBavvgiihkqPjnycak54/10/2019Purpose - LifeAnswerDate RecordedPurpose and direction in qsloLmjoucw99/10/2021 CommentsUnknownSex and Gender InformationValueDate RecordedSex Assigned at Not on fileLegal EwmVmpxfx69/04/2015 3:07 PM EDTGender IdentityNot on fileSexual OrientationNot on file Last Filed Vital Signs Vital SignReadingTime TakenCommentsBlood Gvwtrzty654/7904 5:37 PM EDT Zdnwq5650 5:37 PM AGHKhiiontqizp12.3 ??C (99.1 ??F)11/23/2018 5:37 PM EDTRespiratory Jwii1387 5:37 PM EDTOxygen Aryzghejwq381%11/23/2018 5:37 PM EDTInhaled Oxygen Concentration--Hennms55.3 kg (165 lb 14.4 oz)11/23/2018 5:37 PM XMVIdqctk881.1 cm (5' 5 )11/23/2018 5:37 PM EDTBody Mass Index27.61 11/23/2018 5:37 PM EDT Plan of Treatment Not on file Medical Devices Not on file Insurance Care Teams Team MemberRelationshipSpecialtyStart DateEnd Date No Pcp, No Pcp SU James [id number] [facility]
--- OUTSIDE RECORDS SUMMARY | 2025-06-23 08:56 | XMS_ITS | Encounter Summary ---
Author Organization [facility] Address [address] [place] [address] Care Team Providers Care Wellness Manager Name Role Phone Nik Pineda MD Primary Care Provider [phone] Encounter Details DateTypeDepartmentCare Team (Latest Contact Info)Rhsjopoyqlz34/04/2025amboo flowsheet [facility] [address] [place] [address] Miley Torrez PTA Social History Tobacco UseTypesPacks/DayYears UsedDateSmoking Tobacco: FormerCigarettes 08/26/1993 - 1Smokeless Tobacco: Current Comments:I still vape using nicotine Alcohol UseStandard Drinks/WeekCommentsNot Currently0 (1 standard drink = 0.6 oz pure alcohol)caffeine 2-3 cups per [id number] Health LiteracyAnswerDate Recorded How often do you [...] Gatherings with Friends and FamilyNot on file09/19/2024ttends Episcopal ServicesNot on file09/19/2024Do you belong to any clubs or organizations such as protestant groups, unions, fraternal or athletic groups, or school groups?No 09/19/2024How often do you attend meetings of the clubs or organizations you belong to?Patient jtrwndon70/07/2025re you , , , , never , or living with a partner?Sunyope1409/19/2024UDIT-C AnswerDate RecordedQ1: How often do you have [...] hard at all09/19/2024 PHQ-2AnswerDate RecordedPatient Health Questionnaire-2 Fdjvf431Finmount[facility] view hospital [place] of Occupational Health - Occupational Stress QuestionnaireAnswerDate [...] were you homeless or living in a detention (including now)?No09/19/2024 CommentsNoSex and Gender InformationValueDate RecordedSex Assigned at WksjtJgsivu60/01/2023 10:41 AM EDTLegal EmsXpizyd27/15/2023 6:58 PM EDTGender GyicceuzVcwaar30/01/2023 10:41 AM EDTSexual FtbvqnpgsfmKxenbclq64/01/2023 10:41 AM EDTdocumented as of this encounter Plan of Treatment DateTypeDepartmentCare Team (Latest Contact Info)Ipyigebunxw15/11/2025 5:00 PM ESTTreatment [facility] [address] [facility] [address] [place] [address] Irineo Moser, NICHOLAS 06/26/2025 3:00 PM ESTTreatment [facility] [address] [facility] [address] [place] [address] Irineo Moser PTA 08/17/2025 1:30 PM ESTOffice Visit [facility] [address] [place] [address] Marianna Caballero PA [address] [place] [address] 12/09/2025 2:45 PM EDTOffice Visit [facility] [address] [place] [address] Zaid Cutler DO [address] [place] [address] documented as of this encounter Visit Diagnoses Not on filedocumented in this encounter Care Teams Team MemberRelationshipSpecialtyStart DateEnd Date Nik Pineda MD PCP - GeneralFamily Medicine09/24/23documented as of this encounter
--- OUTSIDE RECORDS SUMMARY | 2025-06-23 08:56 | XMS_ITS | Encounter Summary ---
Author Organization [facility] Address [address] [place] [address] Care Team Providers Care Branch Mechanic Name Role Phone Nik Pineda MD Primary Care Provider [phone] Encounter Details DateTypeDepartmentCare Team (Latest Contact Info)Nqmyuxqmaaa61/29/2025Travel Social History Tobacco UseTypesPacks/DayYears UsedDateSmoking Tobacco: FormerCigarettes 08/26/1993 - 03/18/2021mokeless Tobacco: Current Comments:I still vape using nicotine Alcohol UseStandard Drinks/WeekCommentsNot Currently0 (1 standard drink = 0.6 oz pure alcohol)caffeine 2-3 cups per [id number] Health LiteracyAnswerDate Recorded How often do you [...] Gatherings with Friends and FamilyNot on file09/19/2024ttends Pentecostal ServicesNot on file09/19/2024Do you belong to any clubs or organizations such as mormon groups, unions, fraternal or athletic groups, or school groups?No 09/19/2024How often do you attend meetings of the clubs or organizations you belong to?Patient ckvielzg70/07/2025re you , , , , never , or living with a partner?Zyvmghe0809/19/2024UDIT-C AnswerDate RecordedQ1: How often do you have [...] hard at all09/19/2024 PHQ-2AnswerDate RecordedPatient Health Questionnaire-2 Ieldq944Fin[facility] [place] of Occupational Health - Occupational Stress QuestionnaireAnswerDate [...] were you homeless or living in a residential (including now)?No09/19/2024 CommentsNoSex and Gender InformationValueDate RecordedSex Assigned at DurpeUesuwe38/01/2023 10:41 AM EDTLegal TueQyusiz92/15/2023 6:58 PM EDTGender DtylceykDkyuem41/01/2023 10:41 AM EDTSexual BggajqscqjjObrfzivy85/01/2023 10:41 AM EDTdocumented as of this encounter Plan of Treatment DateTypeDepartmentCare Team (Latest Contact Info)Qukcubtuzvj70/11/2025 5:00 PM ESTTreatment [facility] [address] [facility] [address] [place] [address] Irineo Moser, NICHOLAS 06/26/2025 3:00 PM ESTTreatment [facility] [address] [facility] [address] [place] [address] Irineo Moser, NICHOLAS 08/17/2025 1:30 PM ESTOffice Visit [facility] [address] [facility] [place] [address] Marianna Caballero, KIMBERLEY [address] [place] [address] 12/09/2025 2:45 PM EDTOffice Visit [facility] [address] [place] [address] Zaid Cutler DO [address] [place] [address] documented as of this encounter Visit Diagnoses Not on filedocumented in this encounter Care Teams Team MemberRelationshipSpecialtyStart DateEnd Date Nik Pineda MD PCP - GeneralFamily Medicine09/24/23documented as of this encounter
--- OUTSIDE RECORDS SUMMARY | 2025-06-23 08:56 | XMS_ITS | Clinical Summary ---
Author Organization [facility] Address [address] [place] [address] Care Team Providers Care Garment Fitter Name Role Phone Nik Pineda MD Primary Care Provider [phone] Allergies Active AllergyReactionsCriticalityNoted AeejTkxvtwwsRssboypozdXjzpa43/07/2023 Medications MedicationSigDispense QuantityRefillsLast FilledStart DateEnd DateStatus Buprenorphine HCl-Naloxone HCl (Suboxone) 8-[address] 1 film by sublingual route every day allow to dissolve slowly in mouth without chewing or swallowing SublingualActive albuterol (ProAir RespiClick) 90 mcg/act breath-activated inhaler every 4 (four) hours.Active valACYclovir (Valtrex) 1 g tablet Take 1,000 mg by mouth in the morning and 1,000 mg before bedtime.02/22/2023 Active triamcinolone (Kenalog) 0.025 % ointment Indications:Psoriasis vulgarisApply to affected areas, up to twice a day when flared, 30 day supply 454 g 4Active triamcinolone (Kenalog) 0.025 % cream Indications:Psoriasis vulgarisApply to affected areas, up to twice a day when flared, 30 day supply 30 g 604Active clobetasol (Temovate) 0.05 % external solution Indications:Psoriasis vulgarisApply to scalp Apply to affected areas, up to twice a day when flared, do not use one the face, groin, or underarms, 30 day supply 50 mL 1105Active meloxicam (Mobic) 15 MG tablet Take 15 mg by mouth DailyActive Active Problems ProblemNoted DateDiagnosed DateElevated bwoqjdf7810/14/2024bnormal CBC10/14/2024 Microscopic wvtcdapfe26/04/2025Participant in health and wellness plan09/23/2024 History of hepatitis C009/23/2024 Assessment & Plan (09/23/2024 9:03 AM EST): Treated and cured Impacted cerumen of right ear09/23/2024 Assessment & Plan (09/23/2024 9:16 AM EST): Irrigation: w water pick, 2 large earl chunks cerumen removed Pt tolerated well Does have hx of vertigo, has asked for refill of meclizine in case Rzrgvlc5209/23/2024 Assessment & Plan (09/23/2024 9:16 AM EST): Meclizine prn Non-recurrent acute suppurative otitis media of right ear without spontaneous rupture of tympanic uyfckzgq22/11/2025 Assessment & Plan (09/23/2024 9:18 AM EST): Finish atb, if not better fu in office Opioid abuse, /29/2024 Assessment & Plan (09/23/2024 5:48 AM EST): Is currently taking suboxone and is under the care of Rosy Taylor NP Environmental and seasonal sjhdheybu89/23/2024 Assessment & Plan (01/03/2024 9:56 AM EDT): Recommend starting antihistamine and nasal steroids, she can trial OTC allergy eye drop as well Fu if not better Encounter for screening mammogram for malignant neoplasm of mfgkcg1309/24/2023 Eyxceyfkf66/12/2024 Assessment & Plan (09/24/2023 7:45 PM EST): Refer to [facility] in [place], pt works in [place] in 4 months Slanhgdlag04/07/2024 Assessment & Plan (09/24/2023 7:44 PM EST): See Rheumatology notes, cont meloxicam Obesity (BMI 30-39.9)07/23/2023 Assessment & Plan (09/23/2024 5:48 AM EST): Discussed with patient their BMI (actual, verses recommended). We have also discussed lifestyle modifications: attempts to perform physical activity as chronic conditions allow, also to monitor dietary intake: increasing protein/fruits/veggies and lowering carb intake (unless contraindicated). Limit sodas, juices, and sugary drinks. HAYDEN khtohmre90/11/2023 Assessment & Plan (07/23/2023 6:27 PM EST): Will refer to Rheumatology in [place] in 2months Suspect Sjogren Syndrome TSH ukyrrgyii24/11/2023 Assessment & Plan (07/23/2023 6:28 PM EST): Thyroid antibodies WNL, Free T4 and Free T3 normal, mild elevation in TSH After discussion with pt we will hold on starting meds Until more of her autoimmune problem is figured out Smusarcvglhk94/07/2023Menorrhagia with regular cycle07/19/2023Midline cystocele 07/19/2023urrent ftyvew9507/19/2023 Overview (07/19/2023): Added secondary to documentation in Social History. Stress incontinence of urine07/19/2023 Resolved Problems ProblemNoted DateDiagnosed DateResolved DateChronic viral hepatitis C003/10/2024 09/23/2024 Assessment & Plan (09/23/2024 9:02 AM EST): Treated and cured Acute non-recurrent frontal iwungruyr69 Assessment & Plan (01/03/2024 9:57 AM EDT): Secondary to uncontrolled allergies as well Will start atb Fluids, rest, fu if not better Hepatitis C, acute Encounters DateTypeDepartmentCare JhivJcnikcgjhsu98/04/2025 3:30 PM ESTTreatment [facility] [address] [place] [address] Miley Torrez, PULP GRINDER Cervicalgia (Primary Dx)06/16/2025amboo flowsheet [facility] [address] [facility] [address] [place] [address] Miley Torrez, PULP GRINDER 06/16/20250724Lphigw29/29/2025 6:00 PM EDTTreatment [facility] [address] [facility] [address] [place] [address] Margoth Graham, PULP GRINDER Cervicalgia (Primary Dx)06/10/2025amboo flowsheet [facility] [address] [facility] [address] [place] [address] Margoth Graham, PULP GRINDER 06/10/20258227Inwjuw31/28/7625Zmpurw66/23/2226Onmsmk07/23/2025Plan of Care Documentation [facility] [address] [facility] [address] [place] [address] 06/03/2025 2:00 PM EDTEvaluation [facility] [address] [facility] [address] [place] [address] Ju Berman, PT Cervicalgia (Primary Dx)06/03/2025amboo flowsheet [facility] [address] [facility] [address] [place] [address] Ju Berman, PT 06/03/20253542Nqpqaj62/15/2025Travelfrom Last 3 Months Immunizations ImmunizationAdministration DatesNext YjwASB3209/11/2017,09/04/2017DTP12/16/1985, 02/24/1982,02/22/1981,1980,1980Hep A / Hep B008/24/2010Hep B, Adolescent or Ecnblrigb90/07/2000,05/19/1999,04/19/1999Influenza, High-dose Seasonal, Quadrivalent, Preservative Free08/29/2023Influenza, Unspecified 05/13/2024Influenza, injectable, MDCK, /15/2019Influenza, injectable, quadrivalent, preservative free03/24/2018Influenza, seasonal, /05/2013Influenza, seasonal, injectable, preservative free07/12/2020 MMR04,12/02/1981OPV12/16/1985,02/24/1982,02/22/1981,1980, 1980Td (adult), zxtsumfhdui29/07/1999 Family History Medical HistoryRelationNameCommentsArthritisFatherLarry KaufmanHearing loss FatherLarry KaufmanHeart diseaseFatherLarry KaufmanHyperlipidemiaFatherLarry KaufmanHypertensionFatherLarry Kaufmanvascular diseaseFatherLarry KaufmanAlcohol abuseMaternal GrandfatherN/AArthritisMaternal GrandfatherN/ACOPDMaternal GrandfatherN/ALung cancerMaternal GrandfatherN/ABreast cancerMaternal GrandmotherMarion JesseCancerMaternal GrandmotherMarion JesseAlcohol abuseMother Sophie KaufmanHyperlipidemiaMotherTressa KaufmanHypertensionMotherTressa Hull ArthritisPaternal GrandfatherN/Avascular diseasePaternal GrandfatherN/ARelation NameStatusCommentsFatherLarry KaufmanMaternal GrandfatherN/ADeceasedMaternal GrandmotherMarion JesseDeceasedMotherTressa KaufmanPaternal GrandfatherN/A DeceasedPaternal GrandmotherDeceased Social History Tobacco UseTypesPacks/DayYears UsedDateSmoking Tobacco: FormerCigarettes 08/26/1993 - 03/18/2021mokeless Tobacco: Current Comments:I still vape using nicotine Alcohol UseStandard Drinks/WeekCommentsNot Currently0 (1 standard drink = 0.6 oz pure alcohol)caffeine 2-3 cups per zbqF6215 Health LiteracyAnswerDate Recorded How often do you [...] Gatherings with Friends and FamilyNot on file09/19/2024ttends Restoration ServicesNot on file09/19/2024Do you belong to any clubs or organizations such as rastafarian groups, unions, fraternal or athletic groups, or school groups?No 09/19/2024How often do you attend meetings of the clubs or organizations you belong to?Patient eotznggn25/07/2025re you , , , , never , or living with a partner?Wxpcypu4409/19/2024UDIT-C AnswerDate RecordedQ1: How often do you have [...] hard at all09/19/2024 PHQ-2AnswerDate RecordedPatient Health Questionnaire-2 Dgkcw686Finkane [place] human resource s[facility] [place] of Occupational Health - Occupational Stress QuestionnaireAnswerDate [...] steady place to sleep or slept in [facility] (including now)?No07/16/2023Housing Stability Vital SignAnswerDate RecordedIn the last 12 months, was there a time when you were not able to pay the mortgage or rent on time?No09/19/2024In the past 12 months, how many times have you moved where you were living?t any time in the past 12 months, were you homeless or living in a usp (including now)?No09/19/2024 CommentsNoSex and Gender InformationValueDate RecordedSex Assigned at GggjdGtgooq00/01/2023 10:41 AM EDTLegal JafMcodyp63/15/2023 6:58 PM EDTGender YdfranweMqiheu75/01/2023 10:41 AM EDTSexual ReyplmkwdkwDhmaulzq03/01/2023 10:41 AM EDT Last Filed Vital Signs Vital SignReadingTime TakenCommentsBlood Zizhahdq125/9004 3:16 PM EDT Obmbq025709/23/2024 8:42 AM KLIYhvikizvyit83.9 ??C (98.5 ??F)09/23/2024 8:42 AM ESTRespiratory Hekx846709/23/2024 8:42 AM ESTOxygen Dvmdhacled65%09/23/2024 8:42 AM ESTInhaled Oxygen Concentration--Atbiwh54.5 kg (195 lb)11/26/2024 3:16 PM EDT Ttedvh424.6 cm (5' 4 )09/23/2024 8:42 AM ESTBody Mass Index33.47009/23/2024 8:42 AM EST Plan of Treatment DateTypeDepartmentCare Team (Latest Contact Info)Tizezziniuo65/11/2025 5:00 PM ESTTreatment [facility] [address] [facility] [address] [place] [address] Irineo Moser, PULP GRINDER 06/26/2025 3:00 PM ESTTreatment [facility] [address] [facility] [address] [place] [address] Irineo Moser, PULP GRINDER 08/17/2025 1:30 PM ESTOffice Visit [facility] [address] [place] [address] Marianna Caballero PA [address] [place] [address] 12/09/2025 2:45 PM EDTOffice Visit [facility] [place] [facility] [address] [place] [address] Zaid Cutler DO [address] [place], [place] [id number] Health MaintenanceDue DateLast DoneCommentsCOVID-19 Vaccine ( season) , 11/11/2020, 10/14/20206693Jyqaqbghr53/01/985502/08/2024, 12/11/2023, 11/10/2022, Additional history existsPap Smear7011/05/2023, 07/28/2020Cervical Cancer Zhlltrpol05/16/2030HPV/Lgtngs76, 10/25/2022, 04/27/2022, Additional history existsInfluenza VaccineDiscontinued 05/13/2024, 08/29/2023, 07/12/2020, Additional history existsPneumococcal Vaccine: Pediatrics (0 to 5 Years) and At-Risk Patients (6 to 64 Years)Aged Out No longer eligible based on patient's age to complete this topic Procedures Procedure NamePriorityDate/TimeAssociated DiagnosisCommentsBI MAMMOGRAM SCREENING TOMOSYNTHESIS UNGHJHSAVEepygan29/01/2025 7:34 PM EDT Encounter for screening mammogram for malignant neoplasm of breast IGP, APT HPV,RFX 16/18,52Rbugtfu30/16/2025 12:00 AM EDT History of loop electrical excision procedure (LEEP) Screening for malignant neoplasm of cervix Screening for HPV (human papillomavirus) THINPREP TIS PAP REFL HPV MRNA (IF ASCUS,+)Icfrdpz7711/05/2023 3:47 PM EDT History of loop electrical excision procedure (LEEP) Encounter for Papanicolaou smear for cervical cancer screening from Last 3 Months or Most Recently Relevant to Health Maintenance Results * Bilateral screening mammogram with tomosynthesis (12/11/2024 7:34 PM EDT) Anatomical RegionLateralityModalityBreastBilateralMammographySpecimen (Source) Anatomical Location / LateralityCollection Method / VolumeCollection Time Received Time12/13/2024 10:45 AM EDT Impressions 12/13/2024 10:53 AM EDT Impression: No specific evidence of malignancy seen in either breast. BIRADS 2 - Benign Findings DENSITY: The breasts are heterogeneously dense, which may obscure small masses. FOLLOW-UP: Routine Screening Mammogram ELECTRONICALLY SIGNED BY: Demarcus Shay M.D. Narrative 12/13/2024 10:53 AM EDT Examination: BI MAMMOGRAM SCREENING TOMOSYNTHESIS BILATERAL Clinical History: screening Technique: Screening digital mammography study of both breasts was performed with 2-D and 3-D tomosynthesis imaging. Study was compared to the prior exam dated 12/11/2023. Findings: There is no evidence of interval dominant spiculated mass, grouped microcalcifications, or skin thickening which would be suggestive of malignancy. ?? Axillary lymph nodes are noted bilaterally which appear grossly unremarkable. Procedure Note Demarcus Shay MD - 12/13/2024 Examination: BI MAMMOGRAM SCREENING TOMOSYNTHESIS BILATERAL Clinical History: screening Technique: Screening digital mammography study of both breasts wasperformed with 2-D and 3-D tomosynthesis imaging. Study was compared tothe prior exam dated 12/11/2023. Findings: There is no evidence of interval dominant spiculated mass,grouped microcalcifications, or skin thickening which would be suggestiveof malignancy. Axillary lymph nodes are noted bilaterally which appear grosslyunremarkable. IMPRESSION: Impression: No specific evidence of malignancy seen in either breast. BIRADS 2 - Benign Findings DENSITY: The breasts are heterogeneously dense, which may obscure smallmasses. FOLLOW-UP: Routine Screening Mammogram ELECTRONICALLY SIGNED BY: Demarcus Shay M.D. Authorizing ProviderResult TypeResult StatusRichard A Visci DOIMG BI PROCEDURES Final Result * IGP, APT HPV,RFX 16/18,45 (11/26/2024 12:00 AM EDT)ComponentValueRef RangeTest MethodAnalysis TimePerformed AtPathologist SignatureDiagnosis:CommentLABCORP Comment:NEGATIVE FOR INTRAEPITHELIAL LESION OR MALIGNANCY.Specimen Adequacy: CommentLABCORPComment:Satisfactory for evaluation. No endocervical component is identified.Clinician Provided ICD10:CommentLABCORPComment: Z98.890 Z12.4 Z11.51 Performed By:CommentLABCORPComment:Steve Deras, Ui Developer Designer (ASCP)Cyto Comments.LABCORPNote:CommentLABCORPComment: The Pap smear is a screening test designed to aid in the detection of premalignant and malignant conditions of the uterine cervix. ??It is not a diagnostic procedure and should not be used as the sole means of detecting cervical cancer. ??Both false-positive and false-negative reports do occur. Test Methodology:CommentLABCORPComment: This liquid based ThinPrep(R) pap test was screened with the use of an image guided system. HPV AptimaNegativeNegativeLABCORPComment: This nucleic acid amplification test detects fourteen high-risk HPV types (16,18,31,33,35,39,45,51,52,56,58,59,66,68) without differentiation. Specimen (Source)Anatomical Location / LateralityCollection Method / Volume Collection TimeReceived TimeVaginal Fluid Narrative [facility] - 11/29/2024 8:07 AM EDT Performed at: 01 - [address] ??[id number] Exhibit Designer: Nano Benito MD, Phone: ??[phone] Performed at: ??02 - [facility] ??[id number] Exhibit Designer: Nano Benito MD, Phone: ??[phone] Specimen Comment: No. of containers..01 ThinPrep Vial Authorizing ProviderResult TypeResult StatusRichard A Visci DOL BLOOD ORDERABLESFinal ResultPerforming OrganizationAddressCity/State/ZIP CodePhone Number [facility] * THINPREP TIS PAP REFL HPV MRNA (IF ASCUS,+) (11/05/2023 3:47 PM EDT)Component ValueRef RangeTest MethodAnalysis TimePerformed AtPathologist Signature CLINICAL INFORMATIONQUESTComment:None givenLMPQUESTComment:NONE GIVENPREV. PAP QUESTComment:NONE GIVENPREV. BXQUESTComment:NONE GIVENSOURCEQUESTComment:None givenSTATEMENT OF ADEQUACYQUESTComment: Satisfactory for evaluation. Endocervical/transformation zone component absent. INTERPRETATION/RESULTQUESTComment: Cytology Results: Negative for intraepithelial lesion or malignancy. COMMENTQUESTComment: This Pap test has been evaluated with computer assisted technology. CYTOTECHNOLOGISTQUESTComment: KLEBER SCALES(ASCP) CT screening location: [facility], [address] [place] [address]. (ALWAYS MESSAGE)QUESTComment: EXPLANATORY NOTE: The Pap is a screening test for cervical cancer. It is not a diagnostic test and is subject to false negative and false positive results. It is most reliable when a satisfactory sample, regularly obtained, is submitted with relevant clinical findings and history, and when the Pap result is evaluated along with historic and current clinical information. Specimen (Source)Anatomical Location / LateralityCollection Method / Volume Collection TimeReceived TimeSwabCervix uteri structure / Lsnoaab6411/05/2023 3:47 PM EDT11/06/2023 3:16 AM EDT Narrative Resulting Agency Comment Performing Organization Information ?Site ID: [id number] ?Name: [facility] ?Address: [address] [place] [id number] ?Director: Roberto Loyola MD Authorizing ProviderResult TypeResult StatusRichard A Visci DOLAB CYTOLOGY ORDERABLESFinal ResultPerforming OrganizationAddressCity/State/ZIP CodePhone Number [facility] from Last 3 Months or Most Recently Relevant to Health Maintenance Insurance Care Teams Team MemberRelationshipSpecialtyStart DateEnd Date Nik Pineda MD PCP - [facility]09/24/23
--- OUTSIDE RECORDS SUMMARY | 2025-06-23 08:56 | XMS_ITS | Encounter Summary ---
Author Organization [facility] Address [address] [place] [address] Care Team Providers Care English Tutor Name Role Phone Nik Pineda MD Primary Care Provider [phone] Encounter Details DateTypeDepartmentCare Team (Latest Contact Info)Coyotfdnhef73/04/2025Travel Social History Tobacco UseTypesPacks/DayYears UsedDateSmoking Tobacco: FormerCigarettes 08/26/1993 - 03/18/2021mokeless Tobacco: Current Comments:I still vape using nicotine Alcohol UseStandard Drinks/WeekCommentsNot Currently0 (1 standard drink = 0.6 oz pure alcohol)caffeine 2-3 cups per yaeL8230 Health LiteracyAnswerDate Recorded How often do you [...] Gatherings with Friends and FamilyNot on file09/19/2024ttends Latter-Day ServicesNot on file09/19/2024Do you belong to any clubs or organizations such as jain groups, unions, fraternal or athletic groups, or school groups?No 09/19/2024How often do you attend meetings of the clubs or organizations you belong to?Patient mcltfbcy85/07/2025re you , , , , never , or living with a partner?Agrczuj3009/19/2024UDIT-C AnswerDate RecordedQ1: How often do you have [...] hard at all09/19/2024 PHQ-2AnswerDate RecordedPatient Health Questionnaire-2 Yzoum338Fingunn[facility] [place] of Occupational Health - Occupational Stress QuestionnaireAnswerDate [...] CommentsNoSex and Gender InformationValueDate RecordedSex Assigned at ZlqrzWzhwpj83/01/2023 10:41 AM EDTLegal YyoHtwctu21/15/2023 6:58 PM EDTGender XcctaxyzPwkxam76/01/2023 10:41 AM EDTSexual EfgxnsjpopqPpoilyxj44/01/2023 10:41 AM EDTdocumented as of this encounter Plan of Treatment DateTypeDepartmentCare Team (Latest Contact Info)Mgnywglnlnf75/11/2025 5:00 PM ESTTreatment [facility] [address] [facility] [address] [place] [address] Irineo Moser, NICHOLAS 06/26/2025 3:00 PM ESTTreatment [facility] [address] [facility] [address] [place] [address] Irineo Moser, NICHOLAS 08/17/2025 1:30 PM ESTOffice Visit [facility] [address] [place] [address] Marianna Caballero, KIMBERLEY [address] [place] [address] 12/09/2025 2:45 PM EDTOffice Visit [facility] [place] [facility] [address] [place] [address] Zaid Cutler DO [address] [place] [address] documented as of this encounter Visit Diagnoses Not on filedocumented in this encounter Care Teams Team MemberRelationshipSpecialtyStart DateEnd Date Nik Pineda MD PCP - GeneralFamily Medicine09/24/23documented as of this encounter
--- NOTE | 2025-06-23 08:57 | MR_ITS ---
The [address] [address] Patient Name: SUNI VILLALBA MRN: [id number] date: 1980 Sex: F Assigned Patient Location: MRI Current Patient Location: MRI Accession/Order Number: [id number] Exam Date: 06/23/2025 09:00 Report Date: 06/23/2025 12:21 At the request of: DIVYA KAHN NP Procedure: MR head/brain wo con MR head/brain wo con 06/23/2025 9:41 AM SIGN AND SYMPTOMS: Vertigo PROTOCOL: Multiplanar multisequence MR images of the brain without IV contrast COMPARISON: None. FINDINGS: Extra axial spaces: Age appropriate. Hemorrhage: None. Ventricular system: Within normal limits. Basal cisterns: Within normal limits and not effaced. Cerebral parenchyma: Normal in signal. Midline shift: None.. Cerebellum: Within normal limits. Brainstem: Within normal limits. OTHER: Calvarium: Normal marrow signal. Vascular system: Satisfactory flow voids within the anterior and posterior circulation. Visualized Paranasal sinuses: Mild mucosal thickening is noted in the right maxillary sinus. Visualized Orbits: Within normal limits. Visualized upper cervical spine: Within normal limits. Sella and skull base: Within normal limits. MR/MR head/brain wo con IMPRESSION: No acute intracranial pathology. Mild mucosal thickening is noted in the right maxillary sinus. Impression dictated by: Robert Nino M.D. 06/23/2025 12:21 PM Dictation Location: [place] [address] Electronically authenticated by: [id number] Y Date: 06/23/2025 12:21
== END 2025-06-23 08:53 | disposition home or self-care (01) ==
LOC: MRI 08:52
PROVIDERS: PCP Nurse Practitioner; Visit Provider Nurse Practitioner
DX: R42 Dizziness and giddiness (principal)
CPT/HCPCS: 70551